=== PATIENT | female | born 1960 | race Caucasian/White ===

== ENCOUNTER → 2017-02-06 | Outpatient (CLI) | payer OTHER ==
[~2017-02-06] MED LIST: ACID1CAP PO; ATIV1TAB10 PO; ATOR40TA PO; BUSP10TA PO; CIPR-250 PO; DOCU100C PO; ESTR1TAB PO; IBUP-1114 PO; LYRI100C10 PO; MEDR2.5T2 PO; MIRA3350 PO; MULT1TAB10 PO; NORC5TAB PO; OMEP40CA2 PO; SERT50TA PO; TYLE325T5 PO; VITA50003 PO
[2017-02-06 13:27] LABS: VITAMIN B12 LEVEL 623 PG/ML
[2017-02-06 13:28] LABS: ALBUMIN/GLOBULIN RATIO 1.38 (1.00-1.93); ALKALINE PHOSPHATASE 62 U/L (45-117); ALT/SGPT 22 U/L (12-78); ANION GAP 5 MEQ/L (8-16); AST/SGOT 18 U/L (15-37); BILIRUBIN,TOTAL 0.3 MG/DL (0.2-1.0); BLOOD UREA NITROGEN 19 MG/DL (7-18); CALCIUM LEVEL 8.9 MG/DL (8.5-10.1); CARBON DIOXIDE LEVEL 29 MEQ/L (21-32); CHLORIDE LEVEL 109 MEQ/L (98-107); CREATININE FOR GFR 0.77 MG/DL (0.55-1.02); FERRITIN 14 NG/ML (8-252); FOLATE > 24.0 NG/ML; GLOMERULAR FILTRATION RATE > 60.0 (>51); GLUCOSE, FASTING 88 MG/DL (70-105); MAGNESIUM LEVEL 2.4 MG/DL (1.8-2.4); PHOSPHORUS LEVEL 2.9 MG/DL (2.5-4.9); POTASSIUM SERUM 4.3 MEQ/L (3.5-5.1); SODIUM LEVEL 143 MEQ/L (136-145); TOTAL PROTEIN 6.9 GM/DL (6.4-8.2)
[2017-02-06 14:08] LABS: EOS # 0.3 K/mm3 (0.0-0.50); LYMPH # 1.2 K/mm3 (1.5-4.5); LYMPH % 29.3 % (24.0-44.0); MEAN CORPUSCULAR HEMOGLOBIN 31.3 pg (27.0-33.0); MEAN CORPUSCULAR HGB CONC 32.6 g/dl (32.0-36.5); MEAN CORPUSCULAR VOLUME 96.1 fl (80.0-96.0); MONO # 0.3 K/mm3 (0.0-0.8); MONO % 7.4 % (0.0-5.0); NEUTROPHILS # 2.1 K/mm3 (1.8-7.7); NEUTROPHILS % 52.1 % (36.0-66.0); RED CELL DISTRIBUTION WIDTH 12.5 % (11.5-14.5); WHITE BLOOD COUNT 4.1 K/mm3 (4.0-10.0)
[2017-02-08 00:06] LABS: Lyme Disease IgG/IgM Antibodie <0.91 ISR (0.00-0.90); Lyme Disease IgM Ab Quantitati <0.80 index (0.00-0.79)
[2017-02-10 10:33] LABS: ALBUMIN 4.35 GM/DL (3.29-5.55); GAMMA GLOBULIN % 12.2 % (11.1-18.8)
== END ==
LOC: M SMT 09:04
PROVIDERS: ATTEND Physician Assistant Medical
DX: M13.80 Other specified arthritis, unspecified site (principal)

== ENCOUNTER → 2017-02-27 | Outpatient (CLI) | payer OTHER ==
[~2017-02-27] MED LIST changes: +NORC1TAB4 PO; -NORC5TAB PO
== END ==
LOC: M SMT 13:50
PROVIDERS: ATTEND Physician Assistant Medical
DX: M13.80 Other specified arthritis, unspecified site (principal)

== ENCOUNTER → 2017-04-15 | Outpatient (REF) | payer OTHER | LOC: M LAB REF 11:45 | PROVIDERS: ATTEND Physician Assistant Medical | DX: L72.3 Sebaceous cyst (principal) ==

== ENCOUNTER → 2017-04-18 | Outpatient (CLI) | payer OTHER ==
--- NOTE | 2017-04-18 14:52 | REP ---
Bilateral shoulder series: Six views. History: Bilateral shoulder pain. Comparison study right shoulder views September 13, 2014. Findings: Three views of the right shoulder and three views left shoulder are presented. There is subcortical cyst formation in the distal clavicle on the right. The right glenohumeral and acromioclavicular joints are normally aligned. Periarticular soft tissues are unremarkable. Impression: Minimal hypertrophy and AC joint arthritis on the right. Left shoulder views show normal alignment of the glenohumeral and acromioclavicular joints. There is mild osteoarthritic hypertrophy at the AC joint and mild glenohumeral joint spurring is seen consistent with osteoarthritis. No erosive changes seen. Periarticular soft tissues are unremarkable. Impression: Mild glenohumeral and AC joint osteoarthritic spurring. Signed by Jose Mosley MD 04/18/2017 04:28 P
--- NOTE | 2017-04-18 15:16 | REP ---
Left hand four views: Comparison is 07/13/2010. There is mild joint space narrowing of the PIP and DIP articulations compatible with early osteoarthritic change. This has slightly progressed. The MCP articulations are unremarkable. There is joint space narrowing with cortical eburnation at the thumb C-MC articulation compatible with osteoarthritis. This has progressed. The carpal ossicles are otherwise unremarkable. Mineralization is normal. Impression: Osteoarthritic changes as described. Signed by Fox Mclean MD 04/18/2017 03:07 P
[2017-04-18 17:01] LABS: BASO # 0.1 K/mm3 (0.0-0.2); BASO % 1.3 % (0.0-1.0); EOS # 0.2 K/mm3 (0.0-0.50); EOS % 4.2 % (0.0-3.0); LARGE UNSTAINED CELL # 0.3 K/mm3 (0.0-0.4); LARGE UNSTAINED CELL % 4.7 % (0.0-4.0); LYMPH # 1.6 K/mm3 (1.5-4.5); LYMPH % 28.2 % (24.0-44.0); MEAN CORPUSCULAR HEMOGLOBIN 32.2 pg (27.0-33.0); MEAN CORPUSCULAR HGB CONC 33.8 g/dl (32.0-36.5); MEAN CORPUSCULAR VOLUME 95.4 fl (80.0-96.0); MONO # 0.3 K/mm3 (0.0-0.8); MONO % 5.4 % (0.0-5.0); NEUTROPHILS # 3.1 K/mm3 (1.8-7.7); NEUTROPHILS % 56.1 % (36.0-66.0); PLATELET COUNT, AUTOMATED 182 k/mm3 (150-450); RED CELL DISTRIBUTION WIDTH 12.4 % (11.5-14.5); WHITE BLOOD COUNT 5.6 K/mm3 (4.0-10.0)
[2017-04-18 17:56] LABS: ALBUMIN 4.1 GM/DL (3.2-5.2); ALBUMIN/GLOBULIN RATIO 1.46 (1.00-1.93); ALKALINE PHOSPHATASE 58 U/L (45-117); ALT/SGPT 30 U/L (12-78); ANION GAP 7 MEQ/L (8-16); AST/SGOT 17 U/L (15-37); BILIRUBIN,TOTAL 0.3 MG/DL (0.2-1.0); BLOOD UREA NITROGEN 16 MG/DL (7-18); CALCIUM LEVEL 8.9 MG/DL (8.5-10.1); CARBON DIOXIDE LEVEL 27 MEQ/L (21-32); CHLORIDE LEVEL 107 MEQ/L (98-107); CREATININE FOR GFR 0.94 MG/DL (0.55-1.02); GLOMERULAR FILTRATION RATE > 60.0 (>51); GLUCOSE, FASTING 84 MG/DL (70-105); POTASSIUM SERUM 4.7 MEQ/L (3.5-5.1); SODIUM LEVEL 141 MEQ/L (136-145); TOTAL PROTEIN 6.9 GM/DL (6.4-8.2)
[2017-04-18 18:12] LABS: ERYTHROCYTE SEDIMENTATION RATE 1 mm/hr (0-30)
[2017-04-22 00:06] LABS: Lyme Disease IgG/IgM Antibodie <0.91 ISR (0.00-0.90); Lyme Disease IgM Ab Quantitati <0.80 index (0.00-0.79)
== END ==
LOC: M SMT 13:32
PROVIDERS: ATTEND Internal Medicine Rheumatology
DX: Z79.899 Other long term (current) drug therapy (principal); M35.9 Systemic involvement of connective tissue, unspecified; M18.12 Unilateral primary osteoarthritis of first carpometacarpal joint, left hand

== ENCOUNTER 2017-05-20 08:31 | Outpatient (RCR) | payer OTHER ==
[~2017-05-20 08:31] MED LIST changes: -ATOR40TA PO; +ATOR40TA75 PO; -DOCU100C PO; +DOCU100C16 PO; -LYRI100C10 PO; +MEDR1TAB2 PO; -MEDR2.5T2 PO; +PREG100CA PO; +VITA1CAP40 PO; -VITA50003 PO
== END 2017-06-09 ==
LOC: M OT 08:31
PROVIDERS: ATTEND Internal Medicine Rheumatology
DX: Z51.89 Encounter for other specified aftercare (principal); M19.042 Primary osteoarthritis, left hand

== ENCOUNTER → 2017-06-03 | Outpatient (CLI) | payer OTHER ==
--- NOTE | 2017-06-04 02:16 | REP ---
Clinical: Spondylosis. Comparison: 10/11/2016. Technique: AP, lateral, flexion/extension, bilateral oblique and coned-down views of the lumbosacral spine. Findings: The patient is again noted to be status post stabilization at the L3-4 level with the X-fix device spanning the last osseous. Anterolisthesis at the L3-4 level remain stable. Advanced degenerative changes at L3-4 through L5-S1 include marginal osteophytes, endplate sclerosis, disc space narrowing and hypertrophic facet changes similar to prior examination. Flexion and extension views remain stable. No new acute fracture / compression injury or subluxation noted. Impression: Post fixation at the L3-4 level. Stable advanced degenerative changes at L3-4 through L5-S1. Signed by Sid Dias MD 06/04/2017 02:07 A
--- NOTE | 2017-06-04 02:45 | REP ---
Clinical: Spondylosis. Technique: AP, lateral, flexion/extension, bilateral oblique, and open-mouth views of the cervical spine. Comparison: 02/21/2016. Findings: Advanced and mildly progressive degenerative disc osteophyte complexes are noted involving the C3-4, C4-5, and to a lesser extent the C5-6 and C6-7 levels. Findings include marginal osteophytes, endplate sclerosis/heterogeneity and disc space narrowing along with uncovertebral hypertrophy. No acute fracture / compression injury or subluxation. Alignment is maintained. Spinous processes are intact. Open mouth view demonstrates normal C1-C2 articulation and odontoid process. Impression: Advanced degenerative changes noted at the C3-4 through C6-7 levels. Signed by Sid Dias MD 06/04/2017 02:37 A
== END ==
LOC: M SMT 14:18
PROVIDERS: ATTEND Neurological Surgery
DX: M47.892 Other spondylosis, cervical region (principal); M47.896 Other spondylosis, lumbar region; M51.36 Other intervertebral disc degeneration, lumbar region

== ENCOUNTER → 2017-08-11 | Outpatient (CLI) | payer OTHER ==
[2017-08-11 13:32] LABS: BASO # 0.1 10^3/uL (0.0-0.2); BASO % 1.3 % (0.0-1.0); EOS # 0.3 10^3/uL (0.0-0.50); EOS % 7.2 % (0.0-3.0); IMMATURE GRANULOCYTE % 0.4 % (0-0); LYMPH # 1.7 10^3/uL (1.5-4.5); LYMPH % 36.9 % (24.0-44.0); MEAN CORPUSCULAR HEMOGLOBIN 30.9 pg (27.0-33.0); MEAN CORPUSCULAR HGB CONC 32.5 g/dl (32.0-36.5); MEAN CORPUSCULAR VOLUME 95.1 fl (80.0-96.0); MONO # 0.5 10^3/uL (0.0-0.8); MONO % 11.1 % (0.0-5.0); NEUTROPHILS % 43.1 % (36.0-66.0); PLATELET COUNT, AUTOMATED 163 10^3/uL (150-450); RED CELL DISTRIBUTION WIDTH 12.7 % (11.5-14.5); WHITE BLOOD COUNT 4.6 10^3/uL (4.0-10.0)
[2017-08-11 13:36] LABS: ADD MANUAL DIFFER NO; DIFF SLIDE NUMBER 131
[2017-08-11 13:52] LABS: ALBUMIN 3.8 GM/DL (3.2-5.2); ALBUMIN/GLOBULIN RATIO 1.36 (1.00-1.93); ALKALINE PHOSPHATASE 50 U/L (45-117); ALT/SGPT 27 U/L (12-78); ANION GAP 3 MEQ/L (8-16); AST/SGOT 17 U/L (15-37); BILIRUBIN,TOTAL 0.3 MG/DL (0.2-1.0); BLOOD UREA NITROGEN 18 MG/DL (7-18); CALCIUM LEVEL 8.7 MG/DL (8.5-10.1); CARBON DIOXIDE LEVEL 30 MEQ/L (21-32); CHLORIDE LEVEL 110 MEQ/L (98-107); CHOLESTEROL LEVEL 163 MG/DL (<200); CREATININE FOR GFR 0.75 MG/DL (0.55-1.02); GLOMERULAR FILTRATION RATE > 60.0 (>51); GLUCOSE, FASTING 85 MG/DL (70-105); POTASSIUM SERUM 4.4 MEQ/L (3.5-5.1); SODIUM LEVEL 143 MEQ/L (136-145); TOTAL PROTEIN 6.6 GM/DL (6.4-8.2); TRIGLYCERIDES LEVEL 79 MG/DL (<150)
== END ==
LOC: M SMT 08:47
PROVIDERS: ATTEND Physician Assistant Medical
DX: E78.2 Mixed hyperlipidemia (principal); E55.9 Vitamin D deficiency, unspecified

== ENCOUNTER → 2017-09-25 | Outpatient (CLI) | payer OTHER ==
[~2017-09-25] MED LIST changes: +ASTE0.15; +BIOT50004 PO; +CETI10TA PO; +FLON1SPR; +IBGARD PO; +MAGN250T9 PO; +MELO15TA4 PO; +MONT10TA2 PO; +TIZA2TA PO
[2017-09-25 10:13] LABS: BASO # 0.1 10^3/uL (0.0-0.2); BASO % 1.1 % (0.0-1.0); EOS # 0.3 10^3/uL (0.0-0.50); EOS % 5.3 % (0.0-3.0); IMMATURE GRANULOCYTE % 0.2 % (0-0); LYMPH # 1.7 10^3/uL (1.5-4.5); LYMPH % 31.9 % (24.0-44.0); MEAN CORPUSCULAR HEMOGLOBIN 30.9 pg (27.0-33.0); MEAN CORPUSCULAR HGB CONC 32.7 g/dl (32.0-36.5); MEAN CORPUSCULAR VOLUME 94.5 fl (80.0-96.0); MONO # 0.7 10^3/uL (0.0-0.8); MONO % 12.3 % (0.0-5.0); NEUTROPHILS # 2.7 10^3/uL (1.8-7.7); NEUTROPHILS % 49.2 % (36.0-66.0); PLATELET COUNT, AUTOMATED 177 10^3/uL (150-450); RED CELL DISTRIBUTION WIDTH 12.3 % (11.5-14.5); WHITE BLOOD COUNT 5.5 10^3/uL (4.0-10.0)
[2017-09-25 10:26] LABS: INR 0.93
--- NOTE | 2017-09-25 10:28 | REP ---
Clinical: Preoperative assessment Comparison: 03/12/2016 . Technique: PA and lateral. Findings: The mediastinum and cardiac silhouette are normal. Airway is patent and midline. The lung kemp are clear and without acute consolidation, effusion, or pneumothorax. The skeletal structures are intact and normal. Impression: 1. No acute cardiopulmonary process. Signed by Sid Dias MD 09/25/2017 10:19 A
[2017-09-25 10:39] LABS: ALBUMIN 3.7 GM/DL (3.2-5.2); ALBUMIN/GLOBULIN RATIO 1.32 (1.00-1.93); ALKALINE PHOSPHATASE 51 U/L (45-117); ALT/SGPT 27 U/L (12-78); ANION GAP 6 MEQ/L (8-16); AST/SGOT 14 U/L (7-37); BILIRUBIN,TOTAL 0.3 MG/DL (0.2-1.0); BLOOD UREA NITROGEN 17 MG/DL (7-18); CALCIUM LEVEL 8.9 MG/DL (8.5-10.1); CARBON DIOXIDE LEVEL 28 MEQ/L (21-32); CHLORIDE LEVEL 109 MEQ/L (98-107); CREATININE FOR GFR 0.73 MG/DL (0.55-1.02); GLOMERULAR FILTRATION RATE > 60.0 (>51); GLUCOSE, FASTING 89 MG/DL (70-105); POTASSIUM SERUM 4.4 MEQ/L (3.5-5.1); SODIUM LEVEL 143 MEQ/L (136-145); TOTAL PROTEIN 6.5 GM/DL (6.4-8.2)
--- NOTE | 2017-09-26 13:07 | ECGEPIP ---
Stationary ECG Study [facility] Test Date: 2017-09-25 Pat Name: KANNAN FERRARO Department: Room: - Gender: F Director Property: JOSI : 1960 Requested By: THAI Zelaya Order Number: [id number] Reading MD: Nam Martínez Measurements Intervals [place] Rate: 63 P: 31 WI: 175 QRS: 61 QRSD: 92 T: 56 QT: 405 QTc: 416 Interpretive Statements SINUS RHYTHM Compared to the last 3 tracings, no significant changes Electronically Signed On 09-26-2017 13:07:31 EST by Nam Martínez
== END ==
LOC: M LAB 09:05
PROVIDERS: ATTEND Neurological Surgery
DX: Z01.818 Encounter for other preprocedural examination (principal)

== ENCOUNTER → 2017-09-25 | Outpatient (REF) | payer OTHER | LOC: M LAB REF 16:48 | PROVIDERS: ATTEND Neurological Surgery | DX: Z01.812 Encounter for preprocedural laboratory examination (principal) ==

== ENCOUNTER → 2017-11-20 | Outpatient (REF) | payer OTHER | LOC: M LAB REF 13:17 | DX: Z01.818 Encounter for other preprocedural examination (principal) ==

== ENCOUNTER → 2017-11-20 | Outpatient (REF) | payer OTHER ==
[2017-11-20 13:45] LABS: BASO # 0.1 10^3/uL (0.0-0.2); BASO % 1.3 % (0.0-1.0); EOS # 0.3 10^3/uL (0.0-0.50); HEMATOCRIT 41.6 % (36.0-47.0); HEMOGLOBIN 13.7 g/dl (12.0-16.0); IMMATURE GRANULOCYTE % 0.3 % (0-0); LYMPH # 1.3 10^3/uL (1.5-4.5); LYMPH % 33.4 % (24.0-44.0); MEAN CORPUSCULAR HEMOGLOBIN 30.2 pg (27.0-33.0); MEAN CORPUSCULAR HGB CONC 32.9 g/dl (32.0-36.5); MEAN CORPUSCULAR VOLUME 91.8 fl (80.0-96.0); MONO # 0.5 10^3/uL (0.0-0.8); MONO % 11.3 % (0.0-5.0); NEUTROPHILS # 1.8 10^3/uL (1.8-7.7); NEUTROPHILS % 45.7 % (36.0-66.0); PLATELET COUNT, AUTOMATED 191 10^3/uL (150-450); RED BLOOD COUNT 4.53 10^6/uL (4.00-5.40); RED CELL DISTRIBUTION WIDTH 12.4 % (11.5-14.5)
[2017-11-20 13:56] LABS: INR 0.94; PARTIAL THROMBOPLASTIN TIME 29.2 SECONDS (26.8-37.9); PROTHROMBIN TIME 12.7 SECONDS (12.4-14.5)
[2017-11-20 14:17] LABS: COLLAGEN EPINEPHRINE 154 SECONDS (74-162)
[2017-11-20 14:25] LABS: ALBUMIN/GLOBULIN RATIO 1.33 (1.00-1.93); ALKALINE PHOSPHATASE 58 U/L (45-117); ALT/SGPT 23 U/L (12-78); ANION GAP 9 MEQ/L (8-16); AST/SGOT 17 U/L (7-37); BILIRUBIN,TOTAL 0.5 MG/DL (0.2-1.0); BLOOD UREA NITROGEN 20 MG/DL (7-18); CARBON DIOXIDE LEVEL 26 MEQ/L (21-32); CHLORIDE LEVEL 107 MEQ/L (98-107); CREATININE FOR GFR 0.68 MG/DL (0.55-1.02); GLOMERULAR FILTRATION RATE > 60.0 (>51); GLUCOSE, FASTING 80 MG/DL (70-105); POTASSIUM SERUM 4.2 MEQ/L (3.5-5.1); SODIUM LEVEL 142 MEQ/L (136-145)
== END ==
LOC: M LABNEURO 13:10
DX: Z01.818 Encounter for other preprocedural examination (principal)

== ENCOUNTER 2017-12-04 13:10 | Day surgery (SDC) | payer OTHER ==
[2017-12-04] MEDS: LR 1,000 ML IV (14:30)
[2017-12-04] MEDS ORDERED: LIDOCAINE 1% SDV INJ 30 ML VIAL As Ordered (16:07)
[2017-12-04] MEDS ORDERED: MIDAZOLAM INJ 2 MG/2 ML VIAL (J2250) As Ordered (18:19)
[2017-12-04] MEDS ORDERED: LIDOCAINE 2% INJ 100 MG/5 ML SDV (FOR ANES.) As Ordered (18:19)
[2017-12-04] MEDS ORDERED: fentaNYL 100 MCG/2 ML INJECTION (J3010) As Ordered (18:19)
[2017-12-04] MEDS ORDERED: PROPOFOL 200 MG/20 ML VIAL As Ordered (18:19)
[2017-12-04] MEDS: methylPREDNISolone SUSP 40 MG/ML (DEPO-medrol) VIAL (J1030) As Ordered (19:01)
[2017-12-04] MEDS: LIDOCAINE 1% MDV 20ML VIAL SQ (19:08)
[2017-12-04] MEDS ORDERED: NORCO, ANEXSIA 5/325MG TABLET (HYDROcodone/ACETAMINOPHEN) PO (19:45)
[2017-12-04] MEDS ORDERED: fentaNYL 100 MCG/2 ML INJECTION (J3010) IV (19:45)
[2017-12-04] MEDS ORDERED: ONDANSETRON 4MG/2ML VIAL (J2405) IV (19:45)
[2017-12-04] MEDS ORDERED: LR 1,000 ML IV (19:45)
== END 2017-12-04 20:45 | disposition home or self-care (01) ==
LOC: M SDC 13:10
DX: G56.22 Lesion of ulnar nerve, left upper limb (principal); M54.5 Low back pain; E78.00 Pure hypercholesterolemia, unspecified; K21.9 Gastro-esophageal reflux disease without esophagitis; M12.9 Arthropathy, unspecified; F41.9 Anxiety disorder, unspecified; F32.9 Major depressive disorder, single episode, unspecified; R06.83 Snoring; Z79.899 Other long term (current) drug therapy; Z87.891 Personal history of nicotine dependence; Z78.0 Asymptomatic menopausal state; Z98.51 Tubal ligation status
CPT/HCPCS: 64718

== ENCOUNTER → 2018-04-25 | Outpatient (REF) | payer MEDICARE, OTHER ==
[2018-04-29 00:06] LABS: H PYLORI STOOL ANTIGEN Negative (Negative)
== END ==
LOC: M LAB REF 12:38
DX: K21.9 Gastro-esophageal reflux disease without esophagitis (principal)
CPT/HCPCS: 87338

== ENCOUNTER → 2018-05-04 | Outpatient (REF) | payer MEDICARE, OTHER | LOC: M SFHCWAGY 11:59 | DX: Z12.4 Encounter for screening for malignant neoplasm of cervix (principal); N76.0 Acute vaginitis; Z12.12 Encounter for screening for malignant neoplasm of rectum | CPT/HCPCS: G0123 ==

== ENCOUNTER → 2018-05-08 | Outpatient (REF) | payer MEDICARE, OTHER ==
[2018-05-08 16:26] LABS: TOTAL 25(OH) VITAMIN D 67.1 NG/ML (30.0-100.0)
[2018-05-08 16:28] LABS: ALBUMIN/GLOBULIN RATIO 1.38 (1.00-1.93); ALKALINE PHOSPHATASE 55 U/L (45-117); ALT/SGPT 27 U/L (12-78); ANION GAP 7 MEQ/L (8-16); AST/SGOT 19 U/L (7-37); BILIRUBIN,TOTAL 0.4 MG/DL (0.2-1.0); BLOOD UREA NITROGEN 13 MG/DL (7-18); CALCIUM LEVEL 8.8 MG/DL (8.5-10.1); CARBON DIOXIDE LEVEL 29 MEQ/L (21-32); CHLORIDE LEVEL 108 MEQ/L (98-107); CREATININE FOR GFR 0.71 MG/DL (0.55-1.30); FREE T4 0.88 NG/DL (0.76-1.46); GLOMERULAR FILTRATION RATE > 60.0 (>51); GLUCOSE, FASTING 81 MG/DL (70-100); POTASSIUM SERUM 4.2 MEQ/L (3.5-5.1); SODIUM LEVEL 144 MEQ/L (136-145); THYROID STIMULATING HORMONE 0.516 uIU/ML (0.358-3.740); TOTAL PROTEIN 6.9 GM/DL (6.4-8.2)
== END ==
LOC: M SFHCPLAZ 14:37
DX: E78.5 Hyperlipidemia, unspecified (principal); E55.9 Vitamin D deficiency, unspecified; Z68.31 Body mass index [BMI] 31.0-31.9, adult
CPT/HCPCS: 84443

== ENCOUNTER 2018-07-17 07:33 | Day surgery (SDC) | payer MEDICARE, MEDICAID ==
[2018-07-17] MEDS: NS 1,000 ML IV (07:48)
[2018-07-17] MEDS ORDERED: LIDOCAINE 2% INJ 100 MG/5 ML SDV (FOR ANES.) As Ordered (08:47)
[2018-07-17] MEDS ORDERED: PROPOFOL 200 MG/20 ML VIAL As Ordered ×3 (08:47→09:49)
[2018-07-17] MEDS ORDERED: fentaNYL 100 MCG/2 ML INJECTION (J3010) As Ordered (08:48)
== END 2018-07-17 10:59 | disposition home or self-care (01) ==
LOC: M OPP 10:59
DX: Z12.11 Encounter for screening for malignant neoplasm of colon (principal); D12.7 Benign neoplasm of rectosigmoid junction; K62.6 Ulcer of anus and rectum; K64.8 Other hemorrhoids; R10.13 Epigastric pain; K22.8 Other specified diseases of esophagus; K44.9 Diaphragmatic hernia without obstruction or gangrene; K29.70 Gastritis, unspecified, without bleeding; E78.5 Hyperlipidemia, unspecified; K58.9 Irritable bowel syndrome, unspecified; K21.9 Gastro-esophageal reflux disease without esophagitis; R12 Heartburn; M19.90 Unspecified osteoarthritis, unspecified site; M54.5 Low back pain; L30.9 Dermatitis, unspecified; F32.9 Major depressive disorder, single episode, unspecified; F41.9 Anxiety disorder, unspecified; F17.210 Nicotine dependence, cigarettes, uncomplicated; Z79.899 Other long term (current) drug therapy; Z80.8 Family history of malignant neoplasm of other organs or systems
CPT/HCPCS: 45385

== ENCOUNTER → 2018-07-31 | Outpatient (REF) | payer MEDICARE, MEDICAID | LOC: M SFHCPLAZ 15:45 | DX: L08.9 Local infection of the skin and subcutaneous tissue, unspecified (principal) | CPT/HCPCS: 88304 ==

== ENCOUNTER → 2018-09-01 | Outpatient (CLI) | payer MEDICARE, MEDICAID | LOC: M RAD 08:43 | DX: Z12.2 Encounter for screening for malignant neoplasm of respiratory organs (principal); F17.210 Nicotine dependence, cigarettes, uncomplicated | CPT/HCPCS: G0297 ==

== ENCOUNTER → 2018-09-17 | Outpatient (CLI) | payer MEDICARE | LOC: M WHC 13:12 | DX: Z12.31 Encounter for screening mammogram for malignant neoplasm of breast (principal); Z78.0 Asymptomatic menopausal state; Z92.29 Personal history of other drug therapy | CPT/HCPCS: 77067 ==

== ENCOUNTER → 2018-10-08 | Outpatient (CLI) | payer MEDICARE, MEDICAID | LOC: M RAD 14:01 | DX: J01.01 Acute recurrent maxillary sinusitis (principal); J01.11 Acute recurrent frontal sinusitis | CPT/HCPCS: 70486 ==

== ENCOUNTER → 2018-11-18 | Outpatient (REF) | payer MEDICARE, MEDICAID ==
[~2018-11-18] MED LIST changes: +BIOT10008 PO; +BIOT1CAP2 PO; +CALCCAP6 PO; +MELO15TA28 PO; -MELO15TA4 PO; +SERT-138 PO; +SUCR1TA PO; -VITA1CAP40 PO; +VITA50005 PO
[2018-11-18 15:57] LABS: ALBUMIN 4.1 GM/DL (3.2-5.2); ALT/SGPT 22 U/L (12-78); BILIRUBIN,TOTAL 0.4 MG/DL (0.2-1.0); BLOOD UREA NITROGEN 16 MG/DL (7-18); CALCIUM LEVEL 8.8 MG/DL (8.8-10.2); CARBON DIOXIDE LEVEL 29 MEQ/L (21-32); CHLORIDE LEVEL 107 MEQ/L (98-107); CHOLESTEROL LEVEL 162 MG/DL (<200); CHOLESTEROL RISK RATIO 2.219 (<5); CREATININE FOR GFR 0.74 MG/DL (0.55-1.30); GLOMERULAR FILTRATION RATE > 60.0 (>45); GLUCOSE, FASTING 83 MG/DL (70-100); HDL CHOLESTEROL 73 MG/DL (>40); LDL CHOLESTEROL 76 MG/DL (<100); NON-HDL-C 89 MG/DL; POTASSIUM SERUM 4.1 MEQ/L (3.5-5.1); SODIUM LEVEL 140 MEQ/L (136-145); TOTAL PROTEIN 6.6 GM/DL (6.4-8.2); TRIGLYCERIDES LEVEL 65 MG/DL (<150)
[2018-11-18 16:05] LABS: TOTAL 25(OH) VITAMIN D 38.8 NG/ML (30.0-100.0)
== END ==
LOC: M SFHCPLAZ 13:56
PROVIDERS: ATTEND Nurse Practitioner Family
DX: E78.5 Hyperlipidemia, unspecified (principal); E55.9 Vitamin D deficiency, unspecified
CPT/HCPCS: 36415; 80053; 80061; 82306; G0463

== ENCOUNTER 2019-03-16 08:42 | Day surgery (SDC) | payer MEDICARE, MEDICAID ==
[~2019-03-16] VITALS: Ht 160 cm; Wt 74.8 kg
[~2019-03-16 08:42] MED LIST changes: +ESTR1CRE VA; +FREECAP PO; +MULTCAP PO; -NORC1TAB4 PO; +NORC1TAB7 PO; +SENN1TAB8 PO; +SERT-141 PO; -SERT50TA PO
[2019-03-16 09:25] LABS: HEMATOCRIT 41.4 % (36.0-47.0); MEAN CORPUSCULAR HEMOGLOBIN 31.4 pg (27.0-33.0); MEAN CORPUSCULAR HGB CONC 33.8 g/dl (32.0-36.5); MEAN CORPUSCULAR VOLUME 92.8 fl (80.0-96.0); PLATELET COUNT, AUTOMATED 190 10^3/uL (150-450); RED BLOOD COUNT 4.46 10^6/uL (4.00-5.40); WHITE BLOOD COUNT 4.7 10^3/uL (4.0-10.0)
[2019-03-16] MEDS ORDERED: COMB0.2S OU (09:31)
[2019-03-16 09:51] LABS: BLOOD UREA NITROGEN 17 MG/DL (7-18); CALCIUM LEVEL 8.7 MG/DL (8.8-10.2); CARBON DIOXIDE LEVEL 28 MEQ/L (21-32); CHLORIDE LEVEL 112 MEQ/L (98-107); CREATININE FOR GFR 0.74 MG/DL (0.55-1.30); GLOMERULAR FILTRATION RATE > 60.0 (>45); GLUCOSE, FASTING 93 MG/DL (70-100); POTASSIUM SERUM 4.2 MEQ/L (3.5-5.1); SODIUM LEVEL 143 MEQ/L (136-145)
[2019-03-16] MEDS ORDERED: LR 1,000 ML IV SCH ×2 (10:15→13:15)
[2019-03-16] MEDS ORDERED: LIDOCAINE W/EPINEPHRINE 1% 20ML VIAL As Ordered ONE (10:58)
[2019-03-16] MEDS ORDERED: EPINEPHrine INJ 1 MG/ML 1ML AMP As Ordered ONE (10:58)
[2019-03-16] MEDS ORDERED: OXYMETAZOLINE NASAL SPRAY (AFRIN) As Ordered ONE (10:58)
[2019-03-16] MEDS ORDERED: METHYLENE BLUE 0.5% (5MG/ML) 10 ML AMP (PROVAYBLUE)(Q9968 PER 1MG) As Ordered ONE (10:58)
[2019-03-16] MEDS ORDERED: ROCURONIUM BROMIDE 50 MG/5 ML VIAL As Ordered ONE (11:01)
[2019-03-16] MEDS ORDERED: dexameTHASONE 4 MG/ML 1ML VIAL (J1100) As Ordered ONE (11:01)
[2019-03-16] MEDS ORDERED: ONDANSETRON 4MG/2ML VIAL (J2405) As Ordered ONE (11:01)
[2019-03-16] MEDS ORDERED: PROPOFOL 200 MG/20 ML VIAL As Ordered ONE (11:01)
[2019-03-16] MEDS ORDERED: LIDOCAINE 2% INJ 100 MG/5 ML SDV (FOR ANES.) As Ordered ONE (11:01)
[2019-03-16] MEDS ORDERED: fentaNYL 250 MCG/5 ML INJECTION (J3010) As Ordered ONE (11:02)
[2019-03-16] MEDS ORDERED: MIDAZOLAM INJ 2 MG/2 ML VIAL (J2250) As Ordered ONE (11:02)
[2019-03-16] MEDS ORDERED: ePHEDrine SULFATE 25 MG/5 ML(5MG/ML) SYRINGE As Ordered ONE (12:03)
[2019-03-16] MEDS ORDERED: GLYCOPYRROLATE INJ 0.2 MG/ML 2 ML VIAL As Ordered ONE (12:18)
[2019-03-16] MEDS ORDERED: NEOSTIGMINE 10 MG/10 ML VIAL (J2710) As Ordered ONE (12:18)
[2019-03-16] MEDS ORDERED: ONDANSETRON 4MG/2ML VIAL (J2405) IV PRN (13:15)
[2019-03-16] MEDS ORDERED: fentaNYL 100 MCG/2 ML INJECTION (J3010) IV PRN (13:15)
[2019-03-16] MEDS ORDERED: PERCOCET 5MG/325MG TAB PO PRN ×2 (13:15)
[2019-03-16] MEDS ORDERED: MORPHINE 10 MG/ML 1ML VIAL (J2270) IV PRN (13:15)
[2019-03-16 13:45] VITALS: BP 137/74
[2019-03-16] MEDS ORDERED: PHENYLephrine HCL 500 MCG/5 ML (100MCG/ML) SYRINGE (J2370) As Ordered ONE (14:06)
--- NOTE | 2019-03-17 00:15 | ECGEPIP ---
Stationary ECG Study [facility] Test Date: 2019-03-16 Pat Name: KANNAN FERRARO Department: Room: - Gender: F Digital Technician: MOUSTAPHA : 1960 Requested By: DAVID Adams Order Number: [id number] Reading MD: Nam Martínez Measurements Intervals [place] Rate: 69 P: 59 [place]: 178 QRS: 57 QRSD: 93 T: 55 QT: 404 QTc: 434 Interpretive Statements SINUS RHYTHM COMPARED TO THE LAST 4 TRACINGS IN THE SYSTEM, NO SIGNIFICANT CHANGES Electronically Signed On 03-17-2019 0:15:07 EDT by Nam Martínez
--- NOTE | 2019-03-23 11:13 | RO ---
DATE OF PROCEDURE: 03/16/2019 PREOPERATIVE DIAGNOSES: Acute sinusitis, deviated septum. POSTOPERATIVE DIAGNOSES: Acute sinusitis, deviated septum. PROCEDURE: Septoplasty, bilateral endoscopic ethmoidectomy and antrostomy. SURGEON: Dr. Rj Heart METAL BED ASSEMBLER: ANESTHESIA: General endotracheal. INDICATIONS: This is a 58-year-old who presents with history of nasal congestion chronically with recurring episodes of acute sinusitis. DESCRIPTION OF PROCEDURE: Satisfactory general endotracheal anesthesia administered and a pharyngeal pack placed. The nose was prepared for surgery by placing cotton-soaked pledgets with Afrin solution to the nasal cavity bilaterally. 1% Xylocaine with 1:100,000 epinephrine was used to inject into the nasal septum. A Uday incision was made on the left side of the nose. A mucoperichondrial flap and envelope was created on the left side of the nasal septum and carried down to the junction of the bony and cartilaginous septum. This was then with an elevator, and an envelope was then created on the right side of the septum. A Phong scissors was used to make a cut high in the perpendicular plate in the midportion of the vomer, and a central segment of the bony septum was resected. Next, with the round knife on the [place] elevator, a strip of cartilage was resected from the floor of the nose, mobilizing the quadrilateral cartilage and creating a swinging door. Then, a central segment of cartilaginous septum was resected, preserving a 1 cm dorsal and caudal strut. Double-action rongeur was used to take down deflected portions of the perpendicular plate, as well. Finally, the maxillary crest spur was taken down after elevating mucoperiosteum off both sides of it with a chisel. A segment of the resected cartilage was morselized and placed back into the septal envelope. The incision was closed using an interrupted #5-0 chromic suture. Then, a #4-0 plain suture was placed in a [id number] fashion through the two leaves of mucoperichondrium to appose them. Next, endoscopic surgery was started with the 0 degrees telescope. The microdebrider was the primary dissecting instrument. The left side was prepared by first injecting 1% Xylocaine with 1:100,000 epinephrine to the lateral nasal wall and the turbinates. The uncinate process was resected with the mircrodebrider. The ethmoidal bulla was then perforated and resected completely. The lateral lamella of the middle turbinate which was pneumatized was also resected creating a very large access into the middle meatus. The ground lamella was perforated inferiorly and then opened joining the dissection by the ethmoidal bulla. Then finally the natural maxillary sinus ostia was identified. It was cannulated and it was opened widely using side biting and upbiting forceps. General pledgets were placed into this area of dissection while an identical procedure including resection of the lateral lamella of the leobardo bullosa and middle turbinate was done on the right side. After completing the surgery when the general pledgets were removed there was no significant bleeding. Sinu-Foam was used to fill the middle meatus on both sides. The pharyngeal pack was removed and throat suctioned. The patient was awakened, extubated, and sent to recovery room in satisfactory condition. She will be seen back in the office in three days.
--- NOTE | 2019-03-23 16:28 | RO ---
DATE OF PROCEDURE: 03/16/2019 PREOPERATIVE DIAGNOSES: Recurrent acute sinusitis. Deviated septum. POSTOPERATIVE DIAGNOSES: Recurrent acute sinusitis. Deviated septum. PROCEDURE: 1. Bilateral endoscopic ethmoidectomy and antrostomy with resection of leobardo bullosa middle turbinate. 2. Septoplasty. SURGEON: Dr. 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 INDICATIONS: This 58-year-old with recent onset of sinus and facial pain described as left-sided, periorbital, and sometimes midfacial that was diagnosed as sinus infection. She was treated with antibiotics and would often get better but had continuing symptoms of facial pain and pressure. CT scan demonstrated crowding of the middle meatus, bilateral leobardo bullosa middle turbinates, as well as a septal spur impinging on the left middle turbinate. DESCRIPTION OF PROCEDURE: Satisfactory general endotracheal anesthesia administered. Pharyngeal pack was placed. Nose prepared for surgery by placing cotton-soaked pledgets with Afrin solution into the nasal cavity bilaterally. 1% Xylocaine with 1:100,000 epinephrine used to inject the nasal septum. A Uday incision was made on the left side of the nose. A mucoperichondrial flap and envelope was created on the left side of the nasal septum and carried down to the junction of the bony and cartilaginous septum. This was then with an elevator, and an envelope was then created on the right side of the septum. A Phong scissors was used to make a cut high in the perpendicular plate in the midportion of the vomer, and a central segment of the bony septum was resected. Next, with the round knife on the [place] elevator, a strip of cartilage was resected from the floor of the nose, mobilizing the quadrilateral cartilage and creating a swinging door. Then, a central segment of cartilaginous septum was resected, preserving a 1 cm dorsal and caudal strut. Double-action rongeur was used to take down deflected portions of the perpendicular plate, as well. Finally, the maxillary crest spur was taken down after elevating mucoperiosteum off both sides of it with a chisel. A segment of the resected cartilage was morselized and placed back into the septal envelope. The incision was closed using an interrupted #5-0 chromic suture. Then, a #4-0 plain suture was placed in a tavk-[id number]-nlcga fashion through the two leaves of mucoperichondrium to appose them. Completing the septum surgery, endoscopic surgery was started with a 0-degree telescope and microdebrider as the primary instruments. Left side was engaged first. First, the middle turbinate leobardo bullosa was resected by removing the lateral lamella of the leobardo bullosa and preserving the medial lamella. This was done with the microdebrider. The uncinate process was then taken down with the microdebrider. Ethmoidal bulla was then perforated and resected away completely, enlarging the middle meatus greatly. Natural maxillary sinus ostia was identified, and it was enlarged using combination of side-biting and upbiting forceps. Adrenaline pledgets were placed on this side of the nose while an identical procedure was performed on the right side. Again, the middle turbinate was preserved in this dissection. Completing the surgery and removing the adrenaline pledgets, there was no significant bleeding. Sinu-Foam was injected into both sides of the nose in the middle meatus. Pharyngeal pack was removed. Throat suctioned. Patient was awakened, extubated, and sent to recovery in satisfactory condition. She will be discharged home on Tylox for pain and doxycycline 100 mg twice a day. She will be seen in the office in 5 days.
== END 2019-03-16 14:25 | disposition home or self-care (01) ==
LOC: M SDC 08:42
PROVIDERS: ATTEND Specialist
DX: J34.2 Deviated nasal septum (principal); J01.90 Acute sinusitis, unspecified; E78.5 Hyperlipidemia, unspecified; K58.8 Other irritable bowel syndrome; K21.9 Gastro-esophageal reflux disease without esophagitis; F41.9 Anxiety disorder, unspecified; F32.9 Major depressive disorder, single episode, unspecified; F17.210 Nicotine dependence, cigarettes, uncomplicated; Z79.899 Other long term (current) drug therapy
CPT/HCPCS: 30520; 31240; 31255; 31267; 36415; 80048; 85027; 88300; 88305; 93005; C2625; J1100; J2250; J2405; J2710; J3010; Q9968

== ENCOUNTER → 2019-04-12 | Outpatient (CLI) | payer MEDICARE, MEDICAID ==
[~2019-04-12] MED LIST changes: +COMB0.2S OU
[2019-04-12 17:56] LABS: ALBUMIN 4.1 GM/DL (3.2-5.2); ALT/SGPT 20 U/L (12-78); BILIRUBIN,TOTAL 0.4 MG/DL (0.2-1.0); BLOOD UREA NITROGEN 14 MG/DL (7-18); CALCIUM LEVEL 9.3 MG/DL (8.8-10.2); CARBON DIOXIDE LEVEL 28 MEQ/L (21-32); CHLORIDE LEVEL 108 MEQ/L (98-107); CREATININE FOR GFR 0.69 MG/DL (0.55-1.30); GLOMERULAR FILTRATION RATE > 60.0 (>45); GLUCOSE, FASTING 83 MG/DL (70-100); POTASSIUM SERUM 4.1 MEQ/L (3.5-5.1); SODIUM LEVEL 142 MEQ/L (136-145); TOTAL PROTEIN 6.6 GM/DL (6.4-8.2)
[2019-04-12 18:04] LABS: BASO # 0.1 10^3/uL (0.0-0.2); BASO % 1.7 % (0.0-1.0); EOS # 0.3 10^3/uL (0.0-0.50); EOS % 4.7 % (0.0-3.0); HEMOGLOBIN 13.4 g/dl (12.0-15.5); LYMPH # 2.2 10^3/uL (1.5-4.5); LYMPH % 41.6 % (24.0-44.0); MEAN CORPUSCULAR HEMOGLOBIN 30.9 pg (27.0-33.0); MEAN CORPUSCULAR HGB CONC 33.5 g/dl (32.0-36.5); MEAN CORPUSCULAR VOLUME 92.2 fl (80.0-96.0); MONO # 0.5 10^3/uL (0.0-0.8); MONO % 9.9 % (0.0-5.0); NEUTROPHILS # 2.2 10^3/uL (1.8-7.7); NEUTROPHILS % 41.9 % (36.0-66.0); PLATELET COUNT, AUTOMATED 226 10^3/uL (150-450); RED BLOOD COUNT 4.34 10^6/uL (4.00-5.40); WHITE BLOOD COUNT 5.3 10^3/uL (4.0-10.0)
--- NOTE | 2019-04-13 03:11 | REP ---
Clinical: Shoulder pain. Technique: Internal rotation, external rotation, and Y view of the right shoulder. Findings: Subtle cortical irregularity and spurring at the acromioclavicular joint is appreciated similar to prior examination dated 04/18/2017. The glenoid rim appears normal. There is a broad-based spurring along the inferior margin of the humeral head. Subacromial space is normal. No periarticular calcifications are appreciated. Impression: Osteoarthritic changes as described above. Electronically Signed by Sid Dias MD 04/13/2019 03:03 A
== END ==
LOC: M LAB 16:20
PROVIDERS: ATTEND Nurse Practitioner Family
DX: M19.011 Primary osteoarthritis, right shoulder (principal); E78.5 Hyperlipidemia, unspecified; R05 Cough; M25.511 Pain in right shoulder
CPT/HCPCS: 36415; 73030; 80053; 85025; G0463

== ENCOUNTER → 2019-09-06 | Outpatient (CLI) | payer MEDICARE, MEDICAID ==
[~2019-09-06] MED LIST changes: -OMEP40CA2 PO; +OMEP40CA97 PO
--- NOTE | 2019-09-06 13:13 | REP ---
Clinical: Lung screening. History smoking. Comparison: 09/01/2018 Technique: Axial low-dose noncontrast images from the thoracic inlet to the upper abdomen using lung screening technique. Findings: The lung kemp are well-aerated. No consolidation, significant nodule or mass lesion is appreciated. No pleural effusion/reaction or pneumothorax. Tracheobronchial tree is patent. Mediastinum demonstrates mild atherosclerotic changes of the coronary arteries without cardiomegaly. Impression: Lung-RADS category I. No nodule or suspicious abnormality. Management recommendations include annual low-dose CT evaluation. Electronically Signed by Sid Dias MD 09/06/2019 01:05 P
== END ==
LOC: M RAD 12:52
PROVIDERS: ATTEND Nurse Practitioner Family
DX: Z12.2 Encounter for screening for malignant neoplasm of respiratory organs (principal); F17.210 Nicotine dependence, cigarettes, uncomplicated

== ENCOUNTER → 2019-09-20 | Outpatient (CLI) | payer MEDICARE, MEDICAID ==
[~2019-09-20] MED LIST changes: +DYMI137S; +PROAAER10 INH
--- NOTE | 2019-09-20 15:01 | REPMRS ---
Patient History The patient states she has not had a clinical breast exam in over a year. Patient is postmenopausal. No known family history of cancer. Taking unspecified hormones for 12 years. Digital Woman Screen Mammo: September 20, 2019 - Exam #: [id number] Bilateral CC and MLO view(s) were taken. Technologist: Felicita Garcia, Technologist Prior study comparison: September 17, 2018, bilateral digital woman screen mammo performed at [facility]. September 17, 2017, digital woman screen mammo performed at [facility]. September 04, 2016, digital woman screen mammo performed at [facility]. FINDINGS: The breast tissue is heterogeneously dense. This may lower the sensitivity of mammography. There is a moderate amount of heterogeneously dense fibroglandular tissue which is fairly symmetric. There is no interval development of dominant mass, architectural distortion, or grouped microcalcification typical of malignancy. There has been no change in the appearance of the mammogram from the prior studies. 3-D tomosynthesis shows no additional findings. Assessment: BI-RADS/ACR category 1 mammogram. Negative Mammogram. Recommendation Routine screening mammogram of both breasts in 1 year (for women over age 40). This patient's Lifetime Breast Cancer RIsk is estimated at 7.0 %. This mammogram was interpreted with the aid of an FDA-approved computer-aided dectection system. Electronically Signed By: Min Mosley MD 09/20/19 0056
== END ==
LOC: M WHC 10:56
PROVIDERS: ATTEND Nurse Practitioner Family
DX: Z12.31 Encounter for screening mammogram for malignant neoplasm of breast (principal)

== ENCOUNTER → 2019-09-29 | Outpatient (CLI) | payer MEDICARE, MEDICAID ==
[2019-09-29 17:31] LABS: ALBUMIN 3.9 GM/DL (3.2-5.2); ALT/SGPT 28 U/L (12-78); BILIRUBIN,TOTAL 0.4 MG/DL (0.2-1.0); BLOOD UREA NITROGEN 13 MG/DL (7-18); CALCIUM LEVEL 9.4 MG/DL (8.8-10.2); CARBON DIOXIDE LEVEL 28 MEQ/L (21-32); CHLORIDE LEVEL 110 MEQ/L (98-107); CHOLESTEROL LEVEL 158 MG/DL (<200); CREATININE FOR GFR 0.92 MG/DL (0.55-1.30); GLOMERULAR FILTRATION RATE > 60.0 (>45); GLUCOSE, FASTING 79 MG/DL (70-100); HDL CHOLESTEROL 79 MG/DL (>40); LDL CHOLESTEROL 43 MG/DL (<100); NON-HDL-C 79 MG/DL; POTASSIUM SERUM 4.3 MEQ/L (3.5-5.1); SODIUM LEVEL 143 MEQ/L (136-145); TOTAL PROTEIN 6.8 GM/DL (6.4-8.2); TRIGLYCERIDES LEVEL 180 MG/DL (<150)
[2019-09-29 17:43] LABS: TOTAL 25(OH) VITAMIN D 39.1 NG/ML (30.0-100.0)
== END ==
LOC: M SMT 14:06
PROVIDERS: ATTEND Nurse Practitioner Family
DX: E78.5 Hyperlipidemia, unspecified (principal)

== ENCOUNTER 2019-10-04 08:17 | Day surgery (SDC) | payer MEDICARE, MEDICAID ==
[~2019-10-04] VITALS: Ht 160 cm; Wt 74.9 kg
[~2019-10-04 08:17] MED LIST changes: +NS 1,000 ML IV ONE
[2019-10-04] MEDS ORDERED: LIDOCAINE 2% INJ 100 MG/5 ML SDV (FOR ANES.) As Ordered ONE (08:49)
[2019-10-04] MEDS ORDERED: PROPOFOL 200 MG/20 ML VIAL As Ordered ONE (08:49)
[2019-10-04] MEDS ORDERED: PROPOFOL 500 MG/50 ML VIAL As Ordered ONE (09:18)
--- NOTE | 2019-10-04 09:45 | ROOR ---
Patient Name: Nyla Jones Procedure Date: 10/04/2019 9:05 AM Date of : 1960 Age: 58 Room: [facility] Gender: Female Note Status: Finalized Procedure: Colonoscopy Indications: High risk colon cancer surveillance: Personal history of colonic polyps Providers: Landen Overton MD Referring MD: Sheela Medel NP Requesting Provider: Medicines: Monitored Anesthesia Care Complications: No immediate complications. Procedure: Pre-Anesthesia Assessment: - Prior to the procedure, a History and Physical was performed, and patient medications and allergies were reviewed. The patient is competent. The risks and benefits of the procedure and the sedation options and risks were discussed with the patient. All questions were answered and informed consent was obtained. Patient identification and proposed procedure were verified by the physician, the nurse and the anesthesiologist in the procedure room. Mental Status Examination: alert and oriented. Airway Examination: normal oropharyngeal airway and neck mobility. Respiratory Examination: clear to auscultation. CV Examination: normal. Prophylactic Antibiotics: The patient does not require prophylactic antibiotics. Prior Anticoagulants: The patient has taken no previous anticoagulant or antiplatelet agents. ASA Grade Assessment: II - A patient with mild systemic disease. After reviewing the risks and benefits, the patient was deemed in satisfactory condition to undergo the procedure. The anesthesia plan was to use monitored anesthesia care (MAC). Immediately prior to administration of medications, the patient was re-assessed for adequacy to receive sedatives. The heart rate, respiratory rate, oxygen saturations, blood pressure, adequacy of pulmonary ventilation, and response to care were monitored throughout the procedure. The physical status of the patient was re-assessed after the procedure. The Colonoscope was introduced through the anus and advanced to the terminal ileum, with identification of the appendiceal orifice and IC valve. The colonoscopy was performed without difficulty. The patient tolerated the procedure well. The quality of the bowel preparation was good. The terminal ileum, ileocecal valve, appendiceal orifice, and rectum were photographed. Scope insertion time was 3 minutes. Scope withdrawal time was 9 minutes. The total duration of the procedure was 12 minutes. Findings: The perianal and digital rectal examinations were normal. The terminal ileum appeared normal. A single (solitary) fifteen mm ulcer was found in the ascending colon. Stigmata of recent bleeding were present. Biopsies were taken with a cold forceps for histology. Verification of patient identification for the specimen was done by the physician and nurse using the patient's name, date and medical record number. Estimated blood loss was minimal. A 3 mm polyp was found in the transverse colon. The polyp was sessile. The polyp was removed with a cold biopsy forceps. Resection and retrieval were complete. Four sessile polyps were found in the recto-sigmoid colon. The polyps were 4 to 8 mm in size. These polyps were removed with a cold biopsy forceps. Resection and retrieval were complete. Non-bleeding external and internal hemorrhoids were found during endoscopy. The hemorrhoids were medium-sized. Retroflexion in the rectum was not performed due to anatomy ( small rectum). Impression: - The examined portion of the ileum was normal. - A single (solitary) ulcer in the ascending colon. Biopsied. - One 3 mm polyp in the transverse colon, removed with a cold biopsy forceps. Resected and retrieved. - Four 4 to 8 mm polyps at the recto-sigmoid colon, removed with a cold biopsy forceps. Resected and retrieved. - Non-bleeding external and internal hemorrhoids. Recommendation: - Patient has a contact number available for emergencies. The signs and symptoms of potential delayed complications were discussed with the patient. Return to normal activities tomorrow. Written discharge instructions were provided to the patient. - High fiber diet. - Continue present medications. - Await pathology results. - Repeat colonoscopy in 3 - 5 years for surveillance based on pathology results. - Return to GI clinic in [facility] (address [address], [address], [place], [place] [facility]) in 4 -- 6 weeks. Please call GI clinic @ [phone] for apppointment date and time. - Return to primary care physician. Landen Overton MD Landen Overton MD 10/04/2019 9:45:25 AM Electronically signed by Landen Overton MD Number of Addenda: 0 Note Initiated On: 10/04/2019 9:05 AM Estimated Blood Loss: Estimated blood loss was minimal.
[2019-10-04 10:01] VITALS: BP 145/78
== END 2019-10-04 10:03 | disposition home or self-care (01) ==
LOC: M OPP 08:17
PROVIDERS: ATTEND Internal Medicine Gastroenterology
DX: Z86.010 Personal history of colon polyps (principal); Z09 Encounter for follow-up examination after completed treatment for conditions other than malignant neoplasm; K64.8 Other hemorrhoids; K63.3 Ulcer of intestine; D12.3 Benign neoplasm of transverse colon; D12.7 Benign neoplasm of rectosigmoid junction; F17.210 Nicotine dependence, cigarettes, uncomplicated; Z79.899 Other long term (current) drug therapy; Z88.0 Allergy status to penicillin

== ENCOUNTER 2019-11-08 14:38 | Outpatient (RCR) | payer MEDICARE, MEDICAID ==
[~2019-11-08 14:38] MED LIST changes: -NS 1,000 ML IV ONE
== END 2019-11-09 ==
LOC: M PT 14:38
PROVIDERS: ATTEND Physician Assistant Surgical
DX: M75.41 Impingement syndrome of right shoulder (principal)

== ENCOUNTER 2019-11-17 14:00 | Outpatient (RCR) | payer MEDICARE, MEDICAID | END 2019-12-10 | LOC: M PT 14:00 | PROVIDERS: ATTEND Physician Assistant Surgical | DX: M19.011 Primary osteoarthritis, right shoulder (principal); M75.41 Impingement syndrome of right shoulder ==

== ENCOUNTER → 2019-12-22 | Outpatient (CLI) | payer MEDICARE, MEDICAID ==
[~2019-12-22] MED LIST changes: +CONRAY-43 43% 50ML VIAL (Q9960) As Ordered ONE; +LIDOCAINE 1% MDV 20ML VIAL As Ordered ONE; -MONT10TA2 PO; +MONT10TA4 PO; +TRIAMCINOLONE ACETONIDE SUSP 40 MG/ML VIAL (J3301) As Ordered ONE
--- NOTE | 2019-12-22 16:13 | REP ---
RIGHT SHOULDER INJECTION The procedure was performed under the direct supervision of Dr. Mosley. The benefits and risks including but not limited to pain infection bleeding and anaphylaxis were explained to the patient and informed consent was obtained. The right glenohumeral joint space was localized using fluoroscopic guidance. The skin was prepped and draped in a sterile fashion. 1% lidocaine was used as a local anesthetic. Using fluoroscopic guidance a 22-gauge spinal needle was inserted and advanced into the joint. 0.5 ml of Conray 43 was injected to verify placement. 6 ml of a solution containing 5 ml of 1% lidocaine and 1 ml of Kenalog 40 mg injected. The needle was then removed. The patient tolerated the procedure well and there were no immediate complications. Less than 6 seconds of fluoroscopy time was utilized for this procedure. Electronically Signed by ANDIE Jones 12/22/2019 03:37 P Electronically Signed by Jose Mosley MD 12/22/2019 04:04 P
== END ==
LOC: M RADPRO 14:02
PROVIDERS: ATTEND Orthopaedic Surgery Sports Medicine
DX: M19.011 Primary osteoarthritis, right shoulder (principal); M25.511 Pain in right shoulder
CPT/HCPCS: 20610; 77002; J3301; Q9960

== ENCOUNTER → 2020-03-08 | Outpatient (CLI) | payer MEDICARE, MEDICAID ==
[~2020-03-08] MED LIST changes: -CONRAY-43 43% 50ML VIAL (Q9960) As Ordered ONE; -LIDOCAINE 1% MDV 20ML VIAL As Ordered ONE; +SENN-80 PO; -SENN1TAB8 PO; -TRIAMCINOLONE ACETONIDE SUSP 40 MG/ML VIAL (J3301) As Ordered ONE
--- NOTE | 2020-03-08 15:46 | REP ---
MAXILLOFACIAL CT STUDY WITHOUT CONTRAST: HISTORY: Acute recurrent maxillary sinusitis. Comparison study is from October 08, 2018. CT FINDINGS: Digital biology adjunct instructor radiograph demonstrates that the maxilla is edentulous. There is a small quantity of fluid and mild mucosal thickening in the left maxillary sinus. These are new findings compared with the October 08, 2018 prior study. The right maxillary sinus is clear. The patient is status post bilateral uncinectomies and partial ethmoid bullectomy. There is mild mucosal thickening in the ethmoid air cells. Sphenoid air cells are clear. Mastoid aeration is normal and symmetric. The bony nasal septum is in the midline. No intraorbital abnormality is appreciated. The visualized intracranial structures are unremarkable. IMPRESSION: The patient is status post bilateral uncinectomy. There is mucosal thickening and a small quantity of fluid in the left maxillary sinus. There are mild mucosal changes in the ethmoid air cells bilaterally. Electronically Signed by Jose Mosley MD 03/08/2020 05:05 P
== END ==
LOC: M RAD 15:10
PROVIDERS: ATTEND Specialist
DX: J01.01 Acute recurrent maxillary sinusitis (principal)

== ENCOUNTER → 2020-04-18 | Outpatient (CLI) | payer MEDICARE, MEDICAID ==
[2020-04-18 12:50] LABS: BASO # 0.1 10^3/uL (0.0-0.2); BASO % 1.2 % (0.0-1.0); EOS # 0.3 10^3/uL (0.0-0.5); EOS % 5.7 % (0.0-3.0); HEMATOCRIT 41.6 % (36.0-47.0); HEMOGLOBIN 13.6 g/dl (12.0-15.5); LYMPH # 1.5 10^3/uL (1.5-5.0); LYMPH % 30.1 % (24.0-44.0); MEAN CORPUSCULAR HEMOGLOBIN 31.5 pg (27.0-33.0); MEAN CORPUSCULAR HGB CONC 32.7 g/dl (32.0-36.5); MEAN CORPUSCULAR VOLUME 96.3 fl (80.0-96.0); MONO # 0.5 10^3/uL (0.0-0.8); MONO % 9.8 % (0.0-5.0); NEUTROPHILS # 2.7 10^3/uL (1.5-8.5); PLATELET COUNT, AUTOMATED 169 10^3/uL (150-450); RED BLOOD COUNT 4.32 10^6/uL (4.00-5.40); WHITE BLOOD COUNT 5.1 10^3/uL (4.0-10.0)
[2020-04-18 13:06] LABS: ERYTHROCYTE SEDIMENTATION RATE 4 mm/hr (0-30)
[2020-04-18 13:14] LABS: ALBUMIN 3.9 GM/DL (3.2-5.2); ALT/SGPT 29 U/L (12-78); BILIRUBIN,TOTAL 0.4 MG/DL (0.2-1.0); BLOOD UREA NITROGEN 17 MG/DL (7-18); CALCIUM LEVEL 9.4 MG/DL (8.8-10.2); CARBON DIOXIDE LEVEL 30 MEQ/L (21-32); CHLORIDE LEVEL 108 MEQ/L (98-107); CREATININE FOR GFR 0.78 MG/DL (0.55-1.30); GLOMERULAR FILTRATION RATE > 60.0 (>45); GLUCOSE, FASTING 89 MG/DL (70-100); POTASSIUM SERUM 4.9 MEQ/L (3.5-5.1); RHEUMATOID FACTOR QUANT < 10.0 IU/ML (<15.0); SODIUM LEVEL 140 MEQ/L (136-145); TOTAL PROTEIN 6.7 GM/DL (6.4-8.2)
[2020-04-19 14:12] LABS: ANTINUCLEAR ANTIBODIES DIRECT Negative (Negative)
== END ==
LOC: M LAB 11:36
PROVIDERS: ATTEND Physician Assistant Medical
DX: R51 Headache (principal); R42 Dizziness and giddiness; M54.2 Cervicalgia

== ENCOUNTER 2020-05-08 09:15 | Outpatient (RCR) | payer MEDICARE, MEDICAID | END 2020-05-09 | LOC: M PT 09:15 | PROVIDERS: ATTEND Physician Assistant Medical | DX: M54.2 Cervicalgia (principal) | CPT/HCPCS: 97110; 97140; 97161; G0283 ==

== ENCOUNTER → 2020-05-08 | Outpatient (REF) | payer MEDICARE, MEDICAID | LOC: M SFHCWAGY 17:57 | PROVIDERS: ATTEND Nurse Practitioner Family | DX: Z12.4 Encounter for screening for malignant neoplasm of cervix (principal) | CPT/HCPCS: 87624; G0123; G0463 ==

== ENCOUNTER 2020-05-18 10:00 | Outpatient (RCR) | payer MEDICARE, MEDICAID | END 2020-06-09 | LOC: M PT 10:00 | PROVIDERS: ATTEND Physician Assistant Medical | DX: M54.2 Cervicalgia (principal) | CPT/HCPCS: 97110; 97140; G0283 ==

== ENCOUNTER → 2020-10-14 | Outpatient (CLI) | payer MEDICARE, MEDICAID ==
[~2020-10-14] MED LIST changes: -MONT10TA4 PO; +MONT5TAB2 PO
[2020-10-14 11:30] LABS: HEMATOCRIT 42.2 % (36.0-47.0); HEMOGLOBIN 14.1 g/dl (12.0-15.5); MEAN CORPUSCULAR HEMOGLOBIN 31.8 pg (27.0-33.0); MEAN CORPUSCULAR HGB CONC 33.4 g/dl (32.0-36.5); PLATELET COUNT, AUTOMATED 200 10^3/uL (150-450); RED BLOOD COUNT 4.44 10^6/uL (4.00-5.40); WHITE BLOOD COUNT 4.3 10^3/uL (4.0-10.0)
[2020-10-14 12:00] LABS: ALBUMIN 3.9 GM/DL (3.2-5.2); ALT/SGPT 24 U/L (12-78); BILIRUBIN,TOTAL 0.3 MG/DL (0.2-1.0); BLOOD UREA NITROGEN 17 MG/DL (7-18); CALCIUM LEVEL 9.4 MG/DL (8.8-10.2); CARBON DIOXIDE LEVEL 31 MEQ/L (21-32); CHLORIDE LEVEL 107 MEQ/L (98-107); CHOLESTEROL LEVEL 159 MG/DL (<200); CHOLESTEROL RISK RATIO 2.271 (<5); CREATININE FOR GFR 0.78 MG/DL (0.55-1.30); GLOMERULAR FILTRATION RATE > 60.0 (>45); GLUCOSE, FASTING 96 MG/DL (70-100); HDL CHOLESTEROL 70 MG/DL (>40); LDL CHOLESTEROL 76 MG/DL (<100); NON-HDL-C 89 MG/DL; POTASSIUM SERUM 5.6 MEQ/L (3.5-5.1); SODIUM LEVEL 142 MEQ/L (136-145); TOTAL PROTEIN 6.7 GM/DL (6.4-8.2); TRIGLYCERIDES LEVEL 67 MG/DL (<150)
[2020-10-16 10:11] LABS: TOTAL 25(OH) VITAMIN D 42.2 NG/ML (30.0-100.0)
== END ==
LOC: M LAB 11:02
PROVIDERS: ATTEND Physician Assistant
DX: E78.5 Hyperlipidemia, unspecified (principal); K21.9 Gastro-esophageal reflux disease without esophagitis; E55.9 Vitamin D deficiency, unspecified

== ENCOUNTER → 2020-10-17 | Outpatient (REF) | payer MEDICARE, MEDICAID ==
[~2020-10-17] MED LIST changes: +THERTAB52 PO
[2020-10-17 17:34] LABS: BLOOD UREA NITROGEN 16 MG/DL (7-18); CALCIUM LEVEL 9.3 MG/DL (8.8-10.2); CARBON DIOXIDE LEVEL 31 MEQ/L (21-32); CHLORIDE LEVEL 107 MEQ/L (98-107); CREATININE FOR GFR 0.77 MG/DL (0.55-1.30); GLOMERULAR FILTRATION RATE > 60.0 (>45); GLUCOSE, FASTING 88 MG/DL (70-100); POTASSIUM SERUM 4.8 MEQ/L (3.5-5.1); SODIUM LEVEL 140 MEQ/L (136-145)
== END ==
LOC: M SFHCPLAZ 14:40
PROVIDERS: ATTEND Physician Assistant
DX: E87.5 Hyperkalemia (principal)
CPT/HCPCS: 36415; 80048; G0463

== ENCOUNTER → 2020-10-25 | Outpatient (CLI) | payer MEDICARE, MEDICAID ==
[2020-10-25 11:47] LABS: HEMOGLOBIN 13.5 g/dl (12.0-15.5); MEAN CORPUSCULAR HEMOGLOBIN 30.3 pg (27.0-33.0); MEAN CORPUSCULAR HGB CONC 32.1 g/dl (32.0-36.5); MEAN CORPUSCULAR VOLUME 94.4 fl (80.0-96.0); PLATELET COUNT, AUTOMATED 191 10^3/uL (150-450); RED BLOOD COUNT 4.45 10^6/uL (4.00-5.40); WHITE BLOOD COUNT 5.8 10^3/uL (4.0-10.0)
[2020-10-25 12:04] LABS: INR 0.86; PROTHROMBIN TIME 11.9 SECONDS (12.5-14.3)
[2020-10-25 12:11] LABS: ERYTHROCYTE SEDIMENTATION RATE 7 mm/hr (0-30)
[2020-10-25 12:12] LABS: ALT/SGPT 24 U/L (12-78); BILIRUBIN,TOTAL 0.3 MG/DL (0.2-1.0); BLOOD UREA NITROGEN 13 MG/DL (7-18); CALCIUM LEVEL 9.4 MG/DL (8.8-10.2); CARBON DIOXIDE LEVEL 32 MEQ/L (21-32); CHLORIDE LEVEL 105 MEQ/L (98-107); CREATININE FOR GFR 0.68 MG/DL (0.55-1.30); GLOMERULAR FILTRATION RATE > 60.0 (>45); GLUCOSE, FASTING 94 MG/DL (70-100); POTASSIUM SERUM 4.6 MEQ/L (3.5-5.1); SODIUM LEVEL 142 MEQ/L (136-145); TOTAL PROTEIN 6.7 GM/DL (6.4-8.2)
--- NOTE | 2020-10-25 14:01 | REP ---
INDICATION: PREOP- LABS AND EKG FIRST. COMPARISON: Comparison chest x-ray September 25, 2017. TECHNIQUE: Two views.. FINDINGS: The lungs are well inflated and free of infiltrate. The pleural angles are sharp. The heart size is normal. Pulmonary vasculature is not increased. No significant bony abnormality is seen. There are mild degenerative changes in the thoracic spine and aorta. IMPRESSION: No active disease.. <Electronically signed by Min Mosley > 10/25/20 [id number]
--- NOTE | 2020-10-26 07:13 | ECGEPIP ---
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
== END ==
LOC: M LAB 10:44
PROVIDERS: ATTEND Orthopaedic Surgery Sports Medicine
DX: Z01.812 Encounter for preprocedural laboratory examination (principal); M19.011 Primary osteoarthritis, right shoulder; Z20.828 Contact with and (suspected) exposure to other viral communicable diseases; M51.34 Other intervertebral disc degeneration, thoracic region
CPT/HCPCS: 36415; 71046; 80053; 85027; 85610; 85652; 86850; 86900; 86901; 93005; U0003

== ENCOUNTER → 2020-10-25 | Outpatient (CLI) | payer MEDICARE, MEDICAID | LOC: M LABSMTC 10:19 | PROVIDERS: ATTEND Anesthesiology | DX: Z01.812 Encounter for preprocedural laboratory examination (principal); Z20.828 Contact with and (suspected) exposure to other viral communicable diseases ==

== ENCOUNTER 2020-10-30 10:12 | Day surgery (SDC) | payer MEDICARE, MEDICAID ==
[~2020-10-30] VITALS: Ht 160 cm; Wt 72.1 kg
[~2020-10-30 10:12] MED LIST changes: +ACETAMINOPHEN 1000MG 100ML IV BTL (OFIRMEV) (J0131 PER 10MG) As Ordered ONE; +ACETAMINOPHEN 500 MG TAB PO ONE; +KETOROLAC 60MG 2ML VIAL As Ordered ONE; +LIDOCAINE 1% MDV 20ML VIAL SQ PRN; +LIDOCAINE 2% 100MG/5ML SDV (FOR ANES.) As Ordered ONE; +LR 1,000 ML IV ONE; +MIDAZOLAM INJ 2MG/2ML VIAL (J2250 PER 1MG) As Ordered ONE; +MIDAZOLAM INJ 2MG/2ML VIAL (J2250 PER 1MG) IV PRN; +MONT10TA10 PO; -MONT5TAB2 PO; +ONDANSETRON 4MG/2ML VIAL As Ordered ONE; +ROCURONIUM BROMIDE 50 MG/5 ML VIAL As Ordered ONE; +SUGAMMADEX SODIUM 500 MG/5 ML VIAL (BRIDION) As Ordered ONE; +ceFAZolin SOD 2 GM in IV 1 EA IV ONE; +dexameTHASONE 4 MG/ML 1ML VIAL (J1100 PER 1MG) As Ordered ONE; +fentaNYL 100 MCG/2 ML INJECTION (J3010) As Ordered ONE; +fentaNYL 100 MCG/2 ML INJECTION (J3010) IV PRN; +propofoL 200 MG/20 ML VIAL As Ordered ONE
[2020-10-30] MEDS ORDERED: SCOPOLAMINE 1MG TRANSDERMAL PATCH As Ordered ONE (10:58)
[2020-10-30] MEDS ORDERED: MIDAZOLAM INJ 2MG/2ML VIAL (J2250 PER 1MG) As Ordered ONE (11:02)
[2020-10-30] MEDS ORDERED: fentaNYL 100 MCG/2 ML INJECTION (J3010) As Ordered ONE (11:02)
[2020-10-30] MEDS ORDERED: SCOPOLAMINE 1MG TRANSDERMAL PATCH TOP ONE (11:15)
[2020-10-30] MEDS ORDERED: dexameTHASONE 10MG/1ML VIAL PRES.FREE (J1100 PER 1MG) XX ONE (11:15)
[2020-10-30] MEDS ORDERED: ROPIvacaine 0.5% 30ML INJECTION (J2795 PER 1MG) XX ONE (11:15)
[2020-10-30] MEDS ORDERED: LIDOCAINE 1% MDV 20ML VIAL XX ONE (11:15)
[2020-10-30] MEDS ORDERED: TRANEXAMIC ACID 100 MG/ML 10ML VIAL As Ordered ONE (11:53)
[2020-10-30] MEDS ORDERED: BUPIVACAINE HCL 0.25% 10ML VIAL As Ordered ONE (11:53)
[2020-10-30] MEDS ORDERED: EPINEPHrine INJ 1 MG/ML 1ML AMP As Ordered ONE (11:54)
[2020-10-30] MEDS ORDERED: ceFAZolin 1GM VIAL (J0690 PER 500MG) As Ordered ONE (11:54)
[2020-10-30] MEDS ORDERED: BUPIVACAINE LIPOSOME/PF 1.3% 20ML VIAL (13.3MG/ML)(EXPAREL)(C9290 PER1MG) As Ordered ONE (11:55)
[2020-10-30] MEDS ORDERED: ePHEDrine SULFATE 25 MG/5 ML(5MG/ML) SYRINGE As Ordered ONE (12:37)
[2020-10-30] MEDS ORDERED: PHENYLephrine 500MCG 5ML (100MCG/ML) SYRINGE As Ordered ONE (12:41)
[2020-10-30] MEDS ORDERED: PHENYLEPHRINE 10MG/ML 1ML VIAL (J2370 PER 1) As Ordered ONE (13:51)
[2020-10-30] MEDS ORDERED: VANCOMYCIN 500MG/10ML VIAL As Ordered ONE (15:04)
[2020-10-30] MEDS ORDERED: oxyCODONE 5MG TAB PO PRN (16:00)
[2020-10-30] MEDS ORDERED: LR 1,000 ML IV SCH ×2 (16:00)
[2020-10-30] MEDS ORDERED: PERCOCET 5MG/325MG TAB PO PRN (16:00)
[2020-10-30] MEDS ORDERED: HYDROMORPHONE HCL 0.5 MG/ 0.5 ML SYRINGE (J1170 PER 1) IV PRN (16:00)
[2020-10-30] MEDS ORDERED: ONDANSETRON 4MG/2ML VIAL IV PRN ×2 (16:00)
[2020-10-30] MEDS ORDERED: fentaNYL 100 MCG/2 ML INJECTION (J3010) IV PRN (16:00)
[2020-10-30] MEDS ORDERED: MORPHINE 2 MG/ML 1ML VIAL (J2270) IV PRN (16:00)
[2020-10-30] MEDS ORDERED: ACETAMINOPHEN TAB 650MG DOSE (2X325MG) PO PRN (16:00)
[2020-10-30 18:10] VITALS: BP 126/69
--- NOTE | 2020-10-31 09:03 | RO ---
OPERATIVE NOTE DATE OF OPERATION: 10/30/2020 PREOPERATIVE DIAGNOSIS: Right shoulder osteoarthritis. POSTOPERATIVE DIAGNOSIS: Right shoulder osteoarthritis. PROPOSED PROCEDURE: Right total shoulder anatomic arthroplasty. PROCEDURE PERFORMED: Right total shoulder anatomic arthroplasty. IMPLANTS USED: Piña shoulder anatomic small TT Hybrid glenoid, humerus 17 mm stem, short humeral body, 46 mm humeral head, 2 mm eccentric humeral head adaptor. SURGEON: Mitchell Coronado MD ANESTHESIOLOGIST: Pradip Cook MD ANESTHESIA: General anesthetic plus preoperative block. PEDIATRICIAN MANAGING PARTNER: None. OPERATIVE PREAMBLE: This is a 58-year-old female with severe right shoulder osteoarthritis. We discussed the pros, cons, risks, and benefits of going ahead with anatomic total shoulder arthroplasty given the normal rotator cuff appearance. She wished to proceed. We marked the right upper extremity in preoperative holding. The patient received a preoperative block. She had no further questions. OPERATIVE REPORT: The patient was brought to the operating theatre. There we administered general anesthetic. They administered 2 grams of IV Ancef. They administered 2 grams of IV tranexamic acid. The patient was placed in the beach chair position with the spider arm holding the patient's right side. General anesthesia was induced. The arm was prepped and draped with chlorhexidine-based prep solution allowing over three minutes prep solution drying time prior to draping. All bony prominences were padded. SCDs were used on the down legs and Lu Hugger employed. Preoperative time-out was performed to confirm the correct patient and surgery. I began by making a standard anterior deltopectoral incision to the right shoulder. I carried this dissection down through the skin and subcutaneous tissue achieving meticulous hemostasis. Identified the cephalic vein, retracted with a bladder blade, and protected it through the case. However, at the end of the case, the cephalic vein did require to be tied off in its mid substance. I incised along the lateral aspect of the conjoint tendon and retracted this medially with Lovelace shoulder retraction. I then identified the long head of the biceps. I performed a biceps tenotomy proximally and then a biceps tenodesis distally. I released slightly the upper border of the pectoralis major tendon. I tied off the circumflex humeral vessels using 2-0 Vicryl suture. I performed a subscapularis tenotomy and peel-type tenotomy with #2 FiberWire stay sutures for retraction, as well repair at the end of the case. I inserted the intramedullary guide. I gut this to 30 degrees retroversion side right. I slightly distalized the cut and removed some bone from the superior aspect of the proximal humerus ensuring to protect the supraspinatus tendon throughout the case. I removed osteophytes from the medial side of the humerus. These were in the typical osteophyte location. I peeled off the capsule from inferomedially along the humeral neck. Next, I turned my attention to the glenoid. I removed the labrum from around the glenoid. I inserted the guidewire in the center-center of the glenoid. I used a small circumferential reamer and small sized center peg post reamer. I then drilled the superior and inferior peg holes. I used pulse lavage to irrigate these holes. I then mixed cement using third-generation cementing techniques with vacuum cement mixing. I allowed this to get medium firmness and then inserted cement into the superior and inferior holes. I chose the small TT Hybrid glenoid with central trabecular metal post. I impacted this into place appropriately. Next, I turned my attention to the humeral side. I broached up to a size 17 mm stem and used the standard humeral body. Unfortunately this was sitting quite proud distally and nearly impinging on the undersurface of the rotator cuff tendon. I essentially down sized this to a short humeral trauma style body with appropriate 30 degrees retroversion. This packed down into place nightly. I chose a 46 mm trial and this appeared appropriately sized. I used 2 mm eccentric offset and placed the offset more medially and posteriorly as the component itself was sitting just slightly anteriorly in the canal. This achieved good purchase. The trunnion was impacted on and trialed prior to doing that. I achieved full range of motion with no obvious impingement and 50% anterior to posterior translation of the glenohumeral joint. I then repaired the subscapularis using circumferential sutures that I had placed prior to the humeral component fixation. The sutures were looped around the posterior aspect of the component and then used for repair of the subscapularis tenotomy with the humerus in internal rotation . Rotator cuff appeared intact throughout the case. I closed the rotator interval in a similar fashion with #2 FiberWire suture. I thoroughly irrigated the wound using pulse lavage. I did use 500 mg of vancomycin powder due to the case lasting a little bit longer than two hours, due to some extra time treating the glenoid side, as well as to appropriately size the humeral body and head so as to not impinge on either surface of the supraspinatus tendon. I closed in layers using 2-0 Vicryl sutures for the subcutaneous tissues and Prineo dressing over top once the wound was thoroughly dried. I did use also 20 mL of 0.25% Marcaine with 20 mL of normal saline and 20 mL of Exparel infiltrated in and around the wounds. The patient's upper extremity was placed into a sling after the drapes were removed. The patient was awoken from general anesthetic, transferred off the operating table, and taken to the postanesthetic care unit in stable condition. All sponge count, needle count, and instrument counts were correct. Estimated blood loss 250 mL. PLAN: The patient is to be discharged home according to day surgery criteria, however, may need a 23-hour stay overnight depending on pain. I will see them in the office in 2 weeks. A prescription will be sent electronically to the pharmacy of choice. OTONIEL
== END 2020-10-30 18:10 | disposition home or self-care (01) ==
LOC: M SDC 10:12
PROVIDERS: ATTEND Orthopaedic Surgery Sports Medicine
DX: M19.011 Primary osteoarthritis, right shoulder (principal); E78.5 Hyperlipidemia, unspecified; K44.9 Diaphragmatic hernia without obstruction or gangrene; K58.8 Other irritable bowel syndrome; K21.9 Gastro-esophageal reflux disease without esophagitis; Z79.899 Other long term (current) drug therapy; F17.218 Nicotine dependence, cigarettes, with other nicotine-induced disorders; Z88.0 Allergy status to penicillin; Z88.8 Allergy status to other drugs, medicaments and biological substances
CPT/HCPCS: 23472; 88304; 88311; C1713; C1776; C9290; J0171; J0690; J1100; J1885; J2250; J2370; J2405; J3010; J3370

== ENCOUNTER → 2020-11-20 | Outpatient (CLI) | payer MEDICARE, MEDICAID ==
[~2020-11-20] MED LIST changes: -ACETAMINOPHEN 1000MG 100ML IV BTL (OFIRMEV) (J0131 PER 10MG) As Ordered ONE; -ACETAMINOPHEN 500 MG TAB PO ONE; -KETOROLAC 60MG 2ML VIAL As Ordered ONE; -LIDOCAINE 1% MDV 20ML VIAL SQ PRN; -LIDOCAINE 2% 100MG/5ML SDV (FOR ANES.) As Ordered ONE; -LR 1,000 ML IV ONE; -MIDAZOLAM INJ 2MG/2ML VIAL (J2250 PER 1MG) As Ordered ONE; -MIDAZOLAM INJ 2MG/2ML VIAL (J2250 PER 1MG) IV PRN; -ONDANSETRON 4MG/2ML VIAL As Ordered ONE; -ROCURONIUM BROMIDE 50 MG/5 ML VIAL As Ordered ONE; -SUGAMMADEX SODIUM 500 MG/5 ML VIAL (BRIDION) As Ordered ONE; -ceFAZolin SOD 2 GM in IV 1 EA IV ONE; -dexameTHASONE 4 MG/ML 1ML VIAL (J1100 PER 1MG) As Ordered ONE; -fentaNYL 100 MCG/2 ML INJECTION (J3010) As Ordered ONE; -fentaNYL 100 MCG/2 ML INJECTION (J3010) IV PRN; -propofoL 200 MG/20 ML VIAL As Ordered ONE
--- NOTE | 2020-11-20 14:51 | REP ---
INDICATION: RECHECK. COMPARISON: None. TECHNIQUE: Internal rotation, external rotation, axillary and Y-view of the right shoulder FINDINGS: Evidence for prior replacement. No acute fracture or dislocation appreciated. Subacromial space is normal. No periarticular calcifications or loose bodies are identified. IMPRESSION: Status post right shoulder replacement. <Electronically signed by Sid Dias > 11/20/20 [id number]
== END ==
LOC: M SOG 11-20 14:15
PROVIDERS: ATTEND Orthopaedic Surgery Sports Medicine
DX: Z47.1 Aftercare following joint replacement surgery (principal); Z96.611 Presence of right artificial shoulder joint; F17.210 Nicotine dependence, cigarettes, uncomplicated

== ENCOUNTER 2020-12-08 14:04 | Outpatient (RCR) | payer MEDICARE, MEDICAID ==
[~2020-12-08 14:04] MED LIST changes: -MONT10TA10 PO; +MONT5TAB2 PO
== END 2020-12-10 ==
LOC: M PT 14:04
PROVIDERS: ATTEND Orthopaedic Surgery Sports Medicine
DX: Z47.89 Encounter for other orthopedic aftercare (principal); Z96.611 Presence of right artificial shoulder joint

== ENCOUNTER → 2020-12-12 | Outpatient (REF) | payer MEDICARE, MEDICAID ==
[~2020-12-12] MED LIST changes: +MONT10TA10 PO; -MONT5TAB2 PO
== END ==
LOC: M SFHCPLAZ 16:41
PROVIDERS: ATTEND Physician Assistant
DX: L08.9 Local infection of the skin and subcutaneous tissue, unspecified (principal); L72.3 Sebaceous cyst

== ENCOUNTER → 2020-12-18 | Outpatient (CLI) | payer MEDICARE, MEDICAID ==
--- NOTE | 2020-12-18 13:54 | REP ---
INDICATION: PRESENCE OF RIGH ARTIFIICIAL SHOULDER JOINT. COMPARISON: None. TECHNIQUE: Internal rotation, external rotation, axillary and Y-view of the right shoulder. FINDINGS: Evidence for prior right shoulder replacement with normal positioning to the orthopedic hardware. Acromioclavicular joint is age-appropriate. Subacromial space is normal. No periarticular calcifications or loose bodies. IMPRESSION: Evidence for prior right shoulder replacement. No significant superimposed degenerative changes. <Electronically signed by Sid Dias > 12/18/20 [id number]
== END ==
LOC: M SOG 10:50
PROVIDERS: ATTEND Orthopaedic Surgery Sports Medicine
DX: Z96.611 Presence of right artificial shoulder joint (principal)

== ENCOUNTER → 2021-01-03 | Outpatient (CLI) | payer MEDICARE, MEDICAID ==
--- NOTE | 2021-01-03 13:55 | REP ---
INDICATION: LUNG SCREENING. COMPARISON: Low-dose lung CT 09/06/2019, 09/01/2018; x-ray 10/25/2020 TECHNIQUE: Low-dose lung screening CT protocol with thin section axial lung windows for review. FINDINGS: Lungs remain well inflated. A tiny calcified granuloma is again seen on image 27 in the right upper lobe, stable. There is some dependent atelectatic change posteriorly in the right lower lobe. Some minimal cylindrical bronchiectatic change noted bilaterally I do not see other nodules acute infiltrate or parenchymal mass. No calcified pleural plaque, pleural based mass, acute infiltrate or other significant finding. Heart not grossly enlarged. There is an interval right shoulder arthroplasty. IMPRESSION: Lung RADS ACR category 1-examination. No evidence of malignancy. Stable examination. Patients with this category of findings have less than 1% chance of malignancy at the time of the examination. For patients with elevated risk for lung carcinoma, annual low-dose lung CT screening protocol is advised. <Electronically signed by Jorge Mitchell > 01/03/21 [id number]
== END ==
LOC: M RAD 12:41
PROVIDERS: ATTEND Physician Assistant
DX: Z12.2 Encounter for screening for malignant neoplasm of respiratory organs (principal); F17.210 Nicotine dependence, cigarettes, uncomplicated

== ENCOUNTER 2021-01-04 14:30 | Outpatient (RCR) | payer MEDICARE, MEDICAID | END 2021-01-07 | LOC: M PT 14:30 | PROVIDERS: ATTEND Orthopaedic Surgery Sports Medicine | DX: Z47.89 Encounter for other orthopedic aftercare (principal); M19.011 Primary osteoarthritis, right shoulder ==

== ENCOUNTER 2021-01-25 14:23 | Outpatient (RCR) | payer MEDICARE, MEDICAID | END 2021-02-07 | LOC: M PT 14:23 | PROVIDERS: ATTEND Orthopaedic Surgery Sports Medicine | DX: Z98.890 Other specified postprocedural states (principal); Z96.611 Presence of right artificial shoulder joint ==

== ENCOUNTER → 2021-05-18 | Outpatient (CLI) | payer MEDICARE, MEDICAID ==
[~2021-05-18] MED LIST changes: +OMEP40CA4 PO; -OMEP40CA97 PO
--- NOTE | 2021-05-18 16:15 | REPMRS ---
Patient History The patient states she has not had a clinical breast exam in over a year. No known family history of cancer. Taking unspecified hormones for 12 years. 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 [facility] Patient states no breast complaints today. Patient has signed MRS History Sheet. Digital Woman Screen Mammo: May 18, 2021 - Exam #: [id number] Bilateral CC and MLO view(s) were taken. Technologist: Cookie Rodriguez, Technologist Prior study comparison: September 20, 2019, bilateral digital woman screen mammo performed at [facility]. September 17, 2018, bilateral digital woman screen mammo performed at [facility]. FINDINGS: The breast tissue is heterogeneously dense. This may lower the sensitivity of mammography. There has been no change in the appearance of the mammogram from the prior studies. There is a moderate amount of residual fibroglandular tissue which is fairly symmetric. There is no interval development of dominant mass, areas of architectural distortion, or clustered microcalcification typical of malignancy. Assessment: BI-RADS/ACR category 1 mammogram. Negative Mammogram. Recommendation Routine screening mammogram in 1 year (for women over age 40). This mammogram was interpreted with the aid of an FDA-approved computer-aided dectection system. Electronically Signed By: Fox Smith MD 05/18/21 [id number]
== END ==
LOC: M WHC 15:07
PROVIDERS: ATTEND Nurse Practitioner Family
DX: Z12.31 Encounter for screening mammogram for malignant neoplasm of breast (principal)

== ENCOUNTER → 2021-07-31 | Outpatient (CLI) | payer MEDICARE, MEDICAID ==
--- NOTE | 2021-07-31 16:31 | REP ---
INDICATION: CERVICALGIA. COMPARISON: 06/03/2017 TECHNIQUE: AP and lateral views FINDINGS: The L3-4 posterior fixator is unchanged. Disc space narrowing L3-4 through L5-S1 has increased significantly. The air density seen in those disc spaces on the prior exam has all abated. There is advanced endplate sclerosis seen at L3-4. Vertebral body height and alignment is essentially unchanged. IMPRESSION: Increased discogenic and spinal degenerative changes as described above. <Electronically signed by Lester Raymond > 07/31/21 [id number]
--- NOTE | 2021-07-31 16:33 | REP ---
INDICATION: CERVICALGIA. COMPARISON: 06/03/2017 TECHNIQUE: AP and lateral FINDINGS: AP and lateral views show increased disc space narrowing at all levels with increased anterior and posterior osteophytic ridging C3-4 through C6-7 inclusive. Vertebral body height and alignment has not changed significantly this limited two view exam. The facet joints do appear to be well aligned bilaterally. IMPRESSION: Increased degenerative changes as described above. <Electronically signed by Lester Raymond > 07/31/21 [id number]
== END ==
LOC: M RAD 16:06
PROVIDERS: ATTEND Physician Assistant
DX: M54.2 Cervicalgia (principal)

== ENCOUNTER → 2021-10-15 | Outpatient (CLI) | payer MEDICARE, MEDICAID ==
[2021-10-15 10:34] LABS: HEMATOCRIT 42.3 % (36.0-47.0); HEMOGLOBIN 14.2 g/dl (12.0-15.5); MEAN CORPUSCULAR HEMOGLOBIN 31.6 pg (27.0-33.0); MEAN CORPUSCULAR HGB CONC 33.6 g/dl (32.0-36.5); PLATELET COUNT, AUTOMATED 188 10^3/uL (150-450); WHITE BLOOD COUNT 4.1 10^3/uL (4.0-10.0)
[2021-10-15 12:33] LABS: ALBUMIN 3.7 GM/DL (3.2-5.2); ALT/SGPT 31 U/L (12-78); BILIRUBIN,TOTAL 0.4 MG/DL (0.2-1.0); BLOOD UREA NITROGEN 14 MG/DL (7-18); CALCIUM LEVEL 9.8 MG/DL (8.8-10.2); CARBON DIOXIDE LEVEL 30 MEQ/L (21-32); CHLORIDE LEVEL 108 MEQ/L (98-107); CHOLESTEROL LEVEL 142 MG/DL (<200); CHOLESTEROL RISK RATIO 2.028 (<5); CREATININE FOR GFR 0.78 MG/DL (0.55-1.30); FREE T4 0.79 NG/DL (0.76-1.46); GLOMERULAR FILTRATION RATE > 60.0 (>45); GLUCOSE, FASTING 90 MG/DL (70-100); HDL CHOLESTEROL 70 MG/DL (>40); LDL CHOLESTEROL 58 MG/DL (<100); NON-HDL-C 72 MG/DL; POTASSIUM SERUM 4.4 MEQ/L (3.5-5.1); SODIUM LEVEL 142 MEQ/L (136-145); TOTAL 25(OH) VITAMIN D 38.8 NG/ML (30.0-100.0); TOTAL PROTEIN 6.4 GM/DL (6.4-8.2); TRIGLYCERIDES LEVEL 71 MG/DL (<150)
== END ==
LOC: M LAB 09:41
PROVIDERS: ATTEND Physician Assistant
DX: E78.5 Hyperlipidemia, unspecified (principal); K21.9 Gastro-esophageal reflux disease without esophagitis; E55.9 Vitamin D deficiency, unspecified; Z13.29 Encounter for screening for other suspected endocrine disorder; Z79.899 Other long term (current) drug therapy

== ENCOUNTER 2022-01-09 14:34 | Emergency (ER) | payer MEDICARE, MEDICAID ==
[~2022-01-09] VITALS: Ht 160 cm; Wt 68.6 kg
[~2022-01-09 14:34] MED LIST changes: -MONT10TA10 PO; +MONT10TA97 PO
[2022-01-09] MEDS ORDERED: NITROGLYCERIN 0.4 MG SUBL TABLET SL PRN (15:05)
[2022-01-09] MEDS ORDERED: ASPIRIN 81 MG CHEW TABLET PO ONE (15:05)
[2022-01-09 15:24] LABS: BASO # 0.1 10^3/uL (0.0-0.2); BASO % 1.4 % (0.0-1.0); EOS # 0.2 10^3/uL (0.0-0.5); EOS % 3.8 % (0.0-3.0); HEMATOCRIT 44.2 % (36.0-47.0); LYMPH # 2.3 10^3/uL (1.5-5.0); LYMPH % 41.3 % (24.0-44.0); MEAN CORPUSCULAR HEMOGLOBIN 31.3 pg (27.0-33.0); MEAN CORPUSCULAR HGB CONC 33.9 g/dl (32.0-36.5); MEAN CORPUSCULAR VOLUME 92.1 fl (80.0-96.0); MONO # 0.5 10^3/uL (0.0-0.8); NEUTROPHILS # 2.5 10^3/uL (1.5-8.5); NEUTROPHILS % 44.3 % (36.0-66.0); PLATELET COUNT, AUTOMATED 196 10^3/uL (150-450); WHITE BLOOD COUNT 5.6 10^3/uL (4.0-10.0)
[2022-01-09 15:58] LABS: CK-MB VALUE MASS 2.8 NG/ML (<3.6); MB/CK RELATIVE INDEX 1.72 (< OR =4)
[2022-01-09 16:03] LABS: ALBUMIN 4.2 GM/DL (3.2-5.2); ALT/SGPT 30 U/L (12-78); BILIRUBIN,DIRECT 0.1 MG/DL (0.0-0.2); BILIRUBIN,TOTAL 0.4 MG/DL (0.2-1.0); BLOOD UREA NITROGEN 17 MG/DL (7-18); CALCIUM LEVEL 9.8 MG/DL (8.8-10.2); CARBON DIOXIDE LEVEL 27 MEQ/L (21-32); CHLORIDE LEVEL 108 MEQ/L (98-107); CREATININE FOR GFR 0.78 MG/DL (0.55-1.30); GLOMERULAR FILTRATION RATE > 60.0 (>45); GLUCOSE, FASTING 91 MG/DL (70-100); LIPASE 119 U/L (73-393); NT-PRO BNP 506 PG/ML (<125); SODIUM LEVEL 140 MEQ/L (136-145); THYROID STIMULATING HORMONE 0.711 uIU/ML (0.358-3.740); TOTAL PROTEIN 6.9 GM/DL (6.4-8.2)
[2022-01-09 16:47] LABS: CK-MB VALUE MASS 2.8 NG/ML (<3.6); MB/CK RELATIVE INDEX 2.01 (< OR =4)
[2022-01-09 18:30] VITALS: BP 157/81
[2022-01-09 18:40] LABS: MB/CK RELATIVE INDEX 2.27 (< OR =4)
[2022-01-09] MEDS ORDERED: APIXABAN 5 MG TAB (ELIQUIS) PO ONE (19:20)
[2022-01-09] MEDS ORDERED: ELIQ5TAB PO (19:21)
== END 2022-01-09 19:52 | disposition home or self-care (01) ==
LOC: M ED 14:34
DX: R07.9 Chest pain, unspecified (principal); I48.0 Paroxysmal atrial fibrillation; F17.210 Nicotine dependence, cigarettes, uncomplicated; Z88.1 Allergy status to other antibiotic agents

== ENCOUNTER → 2022-01-22 | Outpatient (CLI) | payer MEDICARE, MEDICAID ==
[~2022-01-22] MED LIST changes: +ELIQ5TAB PO
== END ==
LOC: M RAD 13:33
PROVIDERS: ATTEND Nurse Practitioner Family
DX: F17.210 Nicotine dependence, cigarettes, uncomplicated (principal)

== ENCOUNTER → 2022-05-14 | Outpatient (CLI) | payer MEDICARE, MEDICAID ==
[2022-05-14 13:37] LABS: ALBUMIN 3.8 GM/DL (3.2-5.2); ALT/SGPT 24 U/L (12-78); BILIRUBIN,TOTAL 0.5 MG/DL (0.2-1.0); BLOOD UREA NITROGEN 20 MG/DL (7-18); CALCIUM LEVEL 9.9 MG/DL (8.8-10.2); CARBON DIOXIDE LEVEL 28 MEQ/L (21-32); CHLORIDE LEVEL 109 MEQ/L (98-107); CHOLESTEROL LEVEL 156 MG/DL (<200); CREATININE FOR GFR 0.82 MG/DL (0.55-1.30); GLOMERULAR FILTRATION RATE > 60.0 (>45); GLUCOSE, FASTING 87 MG/DL (70-100); HDL CHOLESTEROL 80 MG/DL (>40); LDL CHOLESTEROL 66 MG/DL (<100); NON-HDL-C 76 MG/DL; POTASSIUM SERUM 4.3 MEQ/L (3.5-5.1); SODIUM LEVEL 141 MEQ/L (136-145); TOTAL PROTEIN 6.4 GM/DL (6.4-8.2); TRIGLYCERIDES LEVEL 50 MG/DL (<150)
[2022-05-14 13:50] LABS: TOTAL 25(OH) VITAMIN D 50.5 NG/ML (30.0-100.0)
== END ==
LOC: M LAB 12:27
PROVIDERS: ATTEND Nurse Practitioner Family
DX: E78.5 Hyperlipidemia, unspecified (principal)

== ENCOUNTER 2022-08-30 14:55 | Observation (INO) | payer MEDICARE, MEDICAID ==
[~2022-08-30] VITALS: Ht 160 cm; Wt 68.9 kg
[2022-08-30 15:49] LABS: BASO # 0.1 10^3/uL (0.0-0.2); BASO % 1.6 % (0.0-1.0); EOS # 0.3 10^3/uL (0.0-0.5); EOS % 5.3 % (0.0-3.0); HEMATOCRIT 41.1 % (36.0-47.0); HEMOGLOBIN 13.5 g/dl (12.0-15.5); MEAN CORPUSCULAR HEMOGLOBIN 31.6 pg (27.0-33.0); MEAN CORPUSCULAR HGB CONC 32.8 g/dl (32.0-36.5); MEAN CORPUSCULAR VOLUME 96.3 fl (80.0-96.0); MONO # 0.5 10^3/uL (0.0-0.8); NEUTROPHILS # 2.1 10^3/uL (1.5-8.5); NEUTROPHILS % 41.9 % (36.0-66.0); PLATELET COUNT, AUTOMATED 174 10^3/uL (150-450); RED BLOOD COUNT 4.27 10^6/uL (4.00-5.40); WHITE BLOOD COUNT 4.9 10^3/uL (4.0-10.0)
[2022-08-30 16:08] LABS: INR 0.97; PROTHROMBIN TIME 13.1 SECONDS (12.5-14.5)
[2022-08-30 16:09] LABS: PARTIAL THROMBOPLASTIN TIME 30.9 SECONDS (24.8-34.2)
[2022-08-30 16:23] LABS: CK-MB VALUE MASS 3.2 NG/ML (<3.6); MB/CK RELATIVE INDEX 2.64 (< OR =4)
[2022-08-30 16:29] LABS: BLOOD UREA NITROGEN 20 MG/DL (7-18); CALCIUM LEVEL 9.2 MG/DL (8.8-10.2); CARBON DIOXIDE LEVEL 26 MEQ/L (21-32); CHLORIDE LEVEL 109 MEQ/L (98-107); CREATININE FOR GFR 0.75 MG/DL (0.55-1.30); GLOMERULAR FILTRATION RATE > 60.0 (>45); GLUCOSE, FASTING 89 MG/DL (70-100); POTASSIUM SERUM 4.1 MEQ/L (3.5-5.1); SODIUM LEVEL 140 MEQ/L (136-145); THYROID STIMULATING HORMONE 0.915 uIU/ML (0.358-3.740)
[2022-08-30 19:30] LABS: RSV AMPLIFICATION NEGATIVE (NEGATIVE)
[2022-08-30] MEDS ORDERED: ELIQ5TAB PO (20:26)
[2022-08-30] MEDS ORDERED: METO1TAB87 PO (20:26)
[2022-08-30] MEDS ORDERED: ALBU8.5H INH (20:26)
[2022-08-30] MEDS ORDERED: SERT50TA29 PO (20:26)
[2022-08-30] MEDS ORDERED: CALCCAP4 PO (20:26)
[2022-08-30] MEDS ORDERED: HOME MED LIST COMPLETE! XX SCH (20:30)
[2022-08-30] MEDS ORDERED: LORazepam 0.5 MG TAB PO PRN (23:30)
[2022-08-31] MEDS: SERTRALINE HCL 50 MG TAB PO SCH ×2 (00:30→08:55)
[2022-08-31] MEDS: APIXABAN 5 MG TAB (ELIQUIS) PO SCH ×2 (00:30→08:55)
[2022-08-31 00:31] VITALS: BP 144/67
[2022-08-31] MEDS: METOPROLOL TART 25 MG TABLET PO SCH ×2 (00:31→08:55)
[2022-08-31] MEDS ORDERED: NICOTINE 21MG/24HR 1 EA TRANSDERMAL TD SCH (09:00)
[2022-08-31] MEDS ORDERED: busPIRone 10 MG TAB PO SCH (09:00)
[2022-08-31] MEDS ORDERED: OMEPRAZOLE 20MG CAP PO SCH (09:00)
[2022-08-31 12:00] VITALS: BP 153/66
[2022-08-31 16:00] VITALS: BP 152/85
[2022-08-31] MEDS ORDERED: ASPI81TA26 PO (16:16)
[2022-08-31 16:44] VITALS: BP 138/67
== END 2022-08-31 17:53 | disposition home or self-care (01) ==
LOC: M ED 18:13 → M ED INP 18:14
PROVIDERS: ADMIT Internal Medicine; ATTEND Internal Medicine
DX: R42 Dizziness and giddiness (principal); I63.9 Cerebral infarction, unspecified; I48.0 Paroxysmal atrial fibrillation; M48.02 Spinal stenosis, cervical region; M51.9 Unspecified thoracic, thoracolumbar and lumbosacral intervertebral disc disorder; I10 Essential (primary) hypertension; E78.00 Pure hypercholesterolemia, unspecified; F13.20 Sedative, hypnotic or anxiolytic dependence, uncomplicated; Z98.890 Other specified postprocedural states; K58.9 Irritable bowel syndrome, unspecified; M81.0 Age-related osteoporosis without current pathological fracture; F32.A Depression, unspecified; F41.9 Anxiety disorder, unspecified; K21.9 Gastro-esophageal reflux disease without esophagitis; H40.059 Ocular hypertension, unspecified eye; G43.909 Migraine, unspecified, not intractable, without status migrainosus; M25.511 Pain in right shoulder; M25.512 Pain in left shoulder; F17.210 Nicotine dependence, cigarettes, uncomplicated; Z79.899 Other long term (current) drug therapy; Z79.01 Long term (current) use of anticoagulants; Z88.0 Allergy status to penicillin
CPT/HCPCS: 36415; 70450; 70544; 70551; 71045; 80048; 82550; 82553; 84443; 84484; 85025; 85610; 85730; 87631; 93005; 93041; 93880; 94760; 97161; 99285; G0378

== ENCOUNTER → 2022-11-19 | Outpatient (CLI) | payer MEDICARE, MEDICAID ==
[~2022-11-19] MED LIST changes: +ALBU8.5H INH; +ASPI81TA26 PO; +CALCCAP4 PO; +METO1TAB87 PO; +SERT50TA29 PO
== END ==
LOC: M WHC 13:28
PROVIDERS: ATTEND Advanced Practice Midwife
DX: Z12.31 Encounter for screening mammogram for malignant neoplasm of breast (principal)

== ENCOUNTER → 2022-11-19 | Outpatient (REF) | payer MEDICARE, MEDICAID | LOC: M PLALAB 14:33 | PROVIDERS: ATTEND Advanced Practice Midwife | DX: Z12.4 Encounter for screening for malignant neoplasm of cervix (principal) | CPT/HCPCS: 87624; G0123 ==

== ENCOUNTER → 2023-04-14 | Outpatient (CLI) | payer MEDICARE, MEDICAID ==
[~2023-04-14] MED LIST changes: +SENN-186 PO; -SENN-80 PO
[2023-04-14 15:57] LABS: BASO # 0.1 10^3/uL (0.0-0.2); EOS # 0.4 10^3/uL (0.0-0.5); EOS % 8.9 % (0.0-3.0); HEMATOCRIT 40.7 % (36.0-47.0); HEMOGLOBIN 13.7 g/dl (12.0-15.5); LYMPH % 40.5 % (24.0-44.0); MEAN CORPUSCULAR HEMOGLOBIN 31.9 pg (27.0-33.0); MEAN CORPUSCULAR HGB CONC 33.7 g/dl (32.0-36.5); MEAN CORPUSCULAR VOLUME 94.9 fl (80.0-96.0); MONO # 0.6 10^3/uL (0.0-0.8); MONO % 12.1 % (2.0-8.0); NEUTROPHILS # 1.8 10^3/uL (1.5-8.5); NEUTROPHILS % 36.3 % (36.0-66.0); PLATELET COUNT, AUTOMATED 185 10^3/uL (150-450); RED BLOOD COUNT 4.29 10^6/uL (4.00-5.40); WHITE BLOOD COUNT 4.9 10^3/uL (4.0-10.0)
[2023-04-14 16:12] LABS: ALKALINE PHOSPHATASE 55 U/L (46-116); ALT/SGPT 25 U/L (7.0-40); AST/SGOT 22 U/L (<34); BILIRUBIN,TOTAL 0.5 MG/DL (0.3-1.2); BLOOD UREA NITROGEN 19 MG/DL (9-23); CARBON DIOXIDE LEVEL 28 MMOL/L (20-31); CHLORIDE LEVEL 107 MMOL/L (98-107); CHOLESTEROL LEVEL 145 MG/DL (<200); CHOLESTEROL RISK RATIO 1.92 (<5); CREATININE FOR GFR 0.73 MG/DL (0.55-1.30); GLOMERULAR FILTRATION RATE > 60.0 (>45); GLUCOSE, FASTING 85 MG/DL (74-106); HDL CHOLESTEROL 75.2 MG/DL (>40); LDL CHOLESTEROL 58.6 MG/DL (<100); NON-HDL-C 69.8 MG/DL; POTASSIUM SERUM 4.3 MMOL/L (3.5-5.1); SODIUM LEVEL 141 MMOL/L (136-145); TOTAL PROTEIN 6.4 G/DL (5.7-8.2); TRIGLYCERIDES LEVEL 56 MG/DL (<150)
[2023-04-14 16:13] LABS: TOTAL 25(OH) VITAMIN D 43.4 NG/ML (20.0-100.0)
== END ==
LOC: M PLALAB 13:38
PROVIDERS: ATTEND Nurse Practitioner Family
DX: E78.5 Hyperlipidemia, unspecified (principal)

== ENCOUNTER → 2023-04-29 | Outpatient (CLI) | payer MEDICARE, MEDICAID | LOC: M RAD 14:15 | PROVIDERS: ATTEND Nurse Practitioner Family | DX: Z87.891 Personal history of nicotine dependence (principal) ==

== ENCOUNTER → 2023-10-20 | Outpatient (CLI) | payer MEDICARE, MEDICAID ==
[~2023-10-20] MED LIST changes: -BIOT50004 PO; +BIOT5CAP8 PO
[2023-10-20 14:35] LABS: BASO # 0.1 10^3/uL (0.0-0.2); BASO % 1.7 % (0.0-1.0); EOS # 0.4 10^3/uL (0.0-0.5); EOS % 6.7 % (0.0-3.0); HEMATOCRIT 42.8 % (36.0-47.0); HEMOGLOBIN 14.2 g/dl (12.0-15.5); LYMPH % 37.8 % (24.0-44.0); MEAN CORPUSCULAR HEMOGLOBIN 31.8 pg (27.0-33.0); MEAN CORPUSCULAR HGB CONC 33.2 g/dl (32.0-36.5); MEAN CORPUSCULAR VOLUME 95.7 fl (80.0-96.0); MONO # 0.5 10^3/uL (0.0-0.8); MONO % 9.6 % (2.0-8.0); NEUTROPHILS # 2.4 10^3/uL (1.5-8.5); PLATELET COUNT, AUTOMATED 200 10^3/uL (150-450); RED BLOOD COUNT 4.47 10^6/uL (4.00-5.40); WHITE BLOOD COUNT 5.4 10^3/uL (4.0-10.0)
[2023-10-20 15:03] LABS: ALBUMIN 4.1 G/DL (3.2-5.2); ALKALINE PHOSPHATASE 65 U/L (46-116); ALT/SGPT 25 U/L (7.0-40); AST/SGOT 24 U/L (<34); BILIRUBIN,TOTAL 0.5 MG/DL (0.3-1.2); BLOOD UREA NITROGEN 20 MG/DL (9-23); CARBON DIOXIDE LEVEL 29 MMOL/L (20-31); CHLORIDE LEVEL 107 MMOL/L (98-107); CHOLESTEROL LEVEL 157 MG/DL (<200); CHOLESTEROL RISK RATIO 2.13 (<5); CREATININE FOR GFR 0.73 MG/DL (0.55-1.30); FREE T4 0.96 NG/DL (0.89-1.76); GLOMERULAR FILTRATION RATE > 60.0 (>45); GLUCOSE, FASTING 84 MG/DL (74-106); HDL CHOLESTEROL 73.5 MG/DL (>40); LDL CHOLESTEROL 68.1 MG/DL (<100); NON-HDL-C 83.5 MG/DL; POTASSIUM SERUM 5.2 MMOL/L (3.5-5.1); SODIUM LEVEL 142 MMOL/L (136-145); THYROID STIMULATING HORMONE 0.694 uIU/ML (0.55-4.78); TOTAL PROTEIN 6.6 G/DL (5.7-8.2); TRIGLYCERIDES LEVEL 77 MG/DL (<150)
[2023-10-20 15:04] LABS: TOTAL 25(OH) VITAMIN D 30.4 NG/ML (20.0-100.0)
[2023-10-20 15:52] LABS: HEMOGLOBIN A1c 4.9 % (4.0-6.0)
== END ==
LOC: M PLALAB 12:12
PROVIDERS: ATTEND Nurse Practitioner Family
DX: E78.5 Hyperlipidemia, unspecified (principal); E55.9 Vitamin D deficiency, unspecified; I48.0 Paroxysmal atrial fibrillation; Z79.899 Other long term (current) drug therapy

== ENCOUNTER → 2023-11-17 | Outpatient (REF) | payer MEDICARE | LOC: M LAB REF 16:28 | PROVIDERS: ATTEND Physician Assistant Medical | DX: R05.9 Cough, unspecified (principal) ==

== ENCOUNTER → 2024-01-29 | Outpatient (CLI) | payer MEDICARE | LOC: M WHC 14:46 | PROVIDERS: ATTEND Advanced Practice Midwife | DX: Z12.31 Encounter for screening mammogram for malignant neoplasm of breast (principal); R92.333 Mammographic heterogeneous density, bilateral breasts ==

== ENCOUNTER → 2024-01-29 | Outpatient (REF) | payer MEDICARE | LOC: M SFHCWAGY 10:00 | PROVIDERS: ATTEND Advanced Practice Midwife | DX: Z12.4 Encounter for screening for malignant neoplasm of cervix (principal) | CPT/HCPCS: 87624; G0123 ==

== ENCOUNTER → 2024-02-05 | Outpatient (CLI) | payer MEDICARE | LOC: M SOG 08:27 | PROVIDERS: ATTEND Orthopaedic Surgery | DX: M25.512 Pain in left shoulder (principal) ==

== ENCOUNTER → 2024-04-22 | Outpatient (CLI) | payer MEDICARE ==
[2024-04-22 14:02] LABS: BASO # 0.1 10^3/uL (0.0-0.2); EOS # 0.3 10^3/uL (0.0-0.5); HEMATOCRIT 43.2 % (36.0-47.0); HEMOGLOBIN 14.3 g/dl (12.0-15.5); LYMPH # 1.7 10^3/uL (1.5-5.0); LYMPH % 37.9 % (24.0-44.0); MEAN CORPUSCULAR HEMOGLOBIN 31.9 pg (27.0-33.0); MEAN CORPUSCULAR HGB CONC 33.1 g/dl (32.0-36.5); MEAN CORPUSCULAR VOLUME 96.4 fl (80.0-96.0); MONO # 0.5 10^3/uL (0.0-0.8); MONO % 11.4 % (2.0-8.0); NEUTROPHILS # 1.9 10^3/uL (1.5-8.5); NEUTROPHILS % 41.5 % (36.0-66.0); PLATELET COUNT, AUTOMATED 219 10^3/uL (150-450); RED BLOOD COUNT 4.48 10^6/uL (4.00-5.40); WHITE BLOOD COUNT 4.6 10^3/uL (4.0-10.0)
[2024-04-22 14:07] LABS: THYROID STIMULATING HORMONE 0.984 uIU/ML (0.55-4.78)
[2024-04-22 14:09] LABS: ALBUMIN 3.8 G/DL (3.2-5.2); ALKALINE PHOSPHATASE 55 U/L (46-116); ALT/SGPT 27 U/L (7.0-40); AST/SGOT 18 U/L (<34); BILIRUBIN,TOTAL 0.4 MG/DL (0.3-1.2); BLOOD UREA NITROGEN 18 MG/DL (9-23); CALCIUM LEVEL 9.9 MG/DL (8.3-10.6); CARBON DIOXIDE LEVEL 28 MMOL/L (20-31); CHLORIDE LEVEL 108 MMOL/L (98-107); CHOLESTEROL LEVEL 158 MG/DL (<200); CHOLESTEROL RISK RATIO 2.07 (<5); CREATININE FOR GFR 0.76 MG/DL (0.55-1.30); GLOMERULAR FILTRATION RATE > 60.0 (>45); GLUCOSE, FASTING 88 MG/DL (74-106); HDL CHOLESTEROL 76.2 MG/DL (>40); LDL CHOLESTEROL 71.4 MG/DL (<100); NON-HDL-C 81.8 MG/DL; POTASSIUM SERUM 4.8 MMOL/L (3.5-5.1); SODIUM LEVEL 141 MMOL/L (136-145); TOTAL PROTEIN 6.2 G/DL (5.7-8.2); TRIGLYCERIDES LEVEL 52 MG/DL (<150)
[2024-04-22 14:10] LABS: FREE T4 1.03 NG/DL (0.89-1.76)
== END ==
LOC: M PLALAB 09:07
PROVIDERS: ATTEND Nurse Practitioner Family
DX: E78.5 Hyperlipidemia, unspecified (principal)

== ENCOUNTER → 2024-07-30 | Outpatient (CLI) | payer MEDICARE | LOC: M RAD 13:23 | PROVIDERS: ATTEND Nurse Practitioner Family | DX: Z87.891 Personal history of nicotine dependence (principal) ==

== ENCOUNTER → 2024-10-18 | Outpatient (CLI) | payer MEDICARE ==
[2024-10-18 15:34] LABS: BASO # 0.1 10^3/uL (0.0-0.2); BASO % 1.5 % (0.0-1.0); EOS # 0.4 10^3/uL (0.0-0.5); EOS % 6.8 % (0.0-3.0); HEMATOCRIT 42.4 % (36.0-47.0); HEMOGLOBIN 14.2 g/dl (12.0-15.5); LYMPH # 1.9 10^3/uL (1.5-5.0); LYMPH % 31.4 % (24.0-44.0); MEAN CORPUSCULAR HEMOGLOBIN 32.3 pg (27.0-33.0); MEAN CORPUSCULAR HGB CONC 33.5 g/dl (32.0-36.5); MEAN CORPUSCULAR VOLUME 96.4 fl (80.0-96.0); MONO # 0.7 10^3/uL (0.0-0.8); MONO % 11.7 % (2.0-8.0); NEUTROPHILS % 48.3 % (36.0-66.0); PLATELET COUNT, AUTOMATED 217 10^3/uL (150-450); WHITE BLOOD COUNT 6.2 10^3/uL (4.0-10.0)
[2024-10-18 16:03] LABS: ALBUMIN 3.8 G/DL (3.2-5.2); ALKALINE PHOSPHATASE 64 U/L (35-104); ALT/SGPT 23 U/L (7.0-40); AST/SGOT 18 U/L (<34); BILIRUBIN,TOTAL 0.6 MG/DL (0.3-1.2); BLOOD UREA NITROGEN 16 MG/DL (9-23); CALCIUM LEVEL 10.2 MG/DL (8.3-10.6); CARBON DIOXIDE LEVEL 28 MMOL/L (20-31); CHLORIDE LEVEL 107 MMOL/L (98-107); CHOLESTEROL LEVEL 167 MG/DL (<200); CHOLESTEROL RISK RATIO 2.51 (<5); CREATININE FOR GFR 0.77 MG/DL (0.55-1.30); GLOMERULAR FILTRATION RATE > 60.0 (>45); GLUCOSE, FASTING 84 MG/DL (74-106); HDL CHOLESTEROL 66.3 MG/DL (>40); LDL CHOLESTEROL 78.1 MG/DL (<100); NON-HDL-C 100.7 MG/DL; POTASSIUM SERUM 4.9 MMOL/L (3.5-5.1); SODIUM LEVEL 143 MMOL/L (136-145); TOTAL PROTEIN 6.4 G/DL (5.7-8.2); TRIGLYCERIDES LEVEL 113 MG/DL (<150)
== END ==
LOC: M PLALAB 13:57
PROVIDERS: ATTEND Nurse Practitioner Family
DX: E55.9 Vitamin D deficiency, unspecified (principal); I48.0 Paroxysmal atrial fibrillation; E78.5 Hyperlipidemia, unspecified

== ENCOUNTER → 2025-02-11 | Outpatient (CLI) | payer MEDICARE | LOC: M SOG 07:54 | PROVIDERS: ATTEND Physician Assistant | DX: M19.012 Primary osteoarthritis, left shoulder (principal) ==

== ENCOUNTER → 2025-03-17 | Day surgery (SDC) | payer MEDICARE ==
[~2025-03-17] VITALS: Ht 160 cm; Wt 75.2 kg
[~2025-03-17] MED LIST changes: +ACID1TAB PO; +BRIM0.2S13; +ECOT81TA5 PO; +ESTR0.1C5; +FLEC25TA PO; +FLUTISP; +PHENYLEPHRINE 10% OPHTH SOL 5ML OS PRN; +PREG-35 PO; -PREG100CA PO; +SUCR1TAB56 PO; +fentaNYL 100 MCG/2 ML INJECTION As Ordered ONE
[2025-03-17] MEDS: LIDOCAINE 3.5 % 1ML OPHTH TOPICAL GEL OU ONE (10:52)
[2025-03-17] MEDS: TROPICAMIDE 1% OPHTH SOLN 15ML OS SCH (10:52)
[2025-03-17] MEDS: PHENYLEPHRINE 2.5% OPHTH SOL 2ML OS SCH (10:52)
[2025-03-17] MEDS: CYCLOPENTOLATE 1% OPHTH SOLN 2ML BTL OS SCH (10:52)
[2025-03-17] MEDS: OFLOXACIN 0.3 % (OCUFLOX) OPTH SOL 5ML OS ONE (10:52)
[2025-03-17] MEDS: LIDOCAINE 1% SDV 5ML VIAL As Ordered ONE (11:24)
[2025-03-17] MEDS: BSS IRRIG/VANCO(10MG)/TOBRA(5MG)/EPINEPH(1:1000-0.5CC)500ML BAG-ORONLY As Ordered ONE (11:24)
[2025-03-17] MEDS: CEFUROXIME 1MG/0.1ML INTRACAMERAL INJ As Ordered ONE (11:24)
[2025-03-17 11:49] VITALS: BP 150/74; TEMP 97.9; O2SAT 98
== END | disposition home or self-care (01) ==
LOC: M SDC 09:13
PROVIDERS: ATTEND Ophthalmology
DX: H25.12 Age-related nuclear cataract, left eye (principal); I48.91 Unspecified atrial fibrillation; I10 Essential (primary) hypertension; E78.00 Pure hypercholesterolemia, unspecified; K58.9 Irritable bowel syndrome, unspecified; F17.210 Nicotine dependence, cigarettes, uncomplicated; K21.9 Gastro-esophageal reflux disease without esophagitis; Z79.01 Long term (current) use of anticoagulants; Z79.899 Other long term (current) drug therapy; Z79.82 Long term (current) use of aspirin; Z86.73 Personal history of transient ischemic attack (TIA), and cerebral infarction without residual deficits; Z88.1 Allergy status to other antibiotic agents; Z88.8 Allergy status to other drugs, medicaments and biological substances; Z87.19 Personal history of other diseases of the digestive system
CPT/HCPCS: 66984; J0697; J3010; V2632

== ENCOUNTER 2025-03-31 09:19 | Day surgery (SDC) | payer MEDICARE ==
[~2025-03-31] VITALS: Ht 160 cm; Wt 75.7 kg
[~2025-03-31 09:19] MED LIST changes: +PHENYLEPHRINE 10% OPHTH SOL 5ML OD PRN; -PHENYLEPHRINE 10% OPHTH SOL 5ML OS PRN; -fentaNYL 100 MCG/2 ML INJECTION As Ordered ONE
[2025-03-31] MEDS: OFLOXACIN 0.3 % (OCUFLOX) OPTH SOL 5ML OD ONE (10:10)
[2025-03-31] MEDS ORDERED: MIDAZOLAM INJ 2MG/2ML VIAL As Ordered ONE (10:42)
[2025-03-31] MEDS: CYCLOPENTOLATE 1% OPHTH SOLN 2ML BTL OD SCH (10:42)
[2025-03-31] MEDS ORDERED: fentaNYL 100 MCG/2 ML INJECTION As Ordered ONE (10:42)
[2025-03-31] MEDS: PHENYLEPHRINE 2.5% OPHTH SOL 2ML OD SCH (10:42)
[2025-03-31] MEDS: LIDOCAINE 3.5 % 1ML OPHTH TOPICAL GEL OU ONE (10:42)
[2025-03-31] MEDS: TROPICAMIDE 1% OPHTH SOLN 15ML OD SCH (10:43)
[2025-03-31] MEDS: LIDOCAINE 1% SDV 5ML VIAL As Ordered ONE (11:54)
[2025-03-31] MEDS: BSS IRRIG/VANCO(10MG)/TOBRA(5MG)/EPINEPH(1:1000-0.5CC)500ML BAG-ORONLY As Ordered ONE (11:54)
[2025-03-31] MEDS: CEFUROXIME 1MG/0.1ML INTRACAMERAL INJ As Ordered ONE (11:55)
[2025-03-31 12:08] VITALS: BP 141/66; TEMP 97.1; O2SAT 96
== END 2025-03-31 12:43 | disposition home or self-care (01) ==
LOC: M SDC 09:19
PROVIDERS: ATTEND Ophthalmology
DX: H25.11 Age-related nuclear cataract, right eye (principal); I48.91 Unspecified atrial fibrillation; I10 Essential (primary) hypertension; E78.00 Pure hypercholesterolemia, unspecified; K58.9 Irritable bowel syndrome, unspecified; Z79.899 Other long term (current) drug therapy; Z79.01 Long term (current) use of anticoagulants; Z79.82 Long term (current) use of aspirin; Z86.73 Personal history of transient ischemic attack (TIA), and cerebral infarction without residual deficits; F17.210 Nicotine dependence, cigarettes, uncomplicated; Z88.1 Allergy status to other antibiotic agents; Z88.8 Allergy status to other drugs, medicaments and biological substances
CPT/HCPCS: 66984; J0697; J2250; J3010; V2632

== ENCOUNTER → 2025-10-20 | Outpatient (CLI) | payer MEDICARE ==
[~2025-10-20] MED LIST changes: +ISOVUE-300 61% 100 ML VIAL As Ordered ONE; +LIDOCAINE 1% MDV 20 ML VIAL As Ordered ONE; -PHENYLEPHRINE 10% OPHTH SOL 5ML OD PRN; +TRIAMCINOLONE ACETONIDE SUSP 40MG/ML 1ML VIAL As Ordered ONE
== END ==
LOC: M RAD 14:26
PROVIDERS: ATTEND Physician Assistant
DX: M19.012 Primary osteoarthritis, left shoulder (principal)
CPT/HCPCS: 20610; 77002; J0665; J3301; Q9967